=== PATIENT | male | born 1960 | race Caucasian/White ===

== ENCOUNTER 2024-05-20 11:52 | Inpatient (IN) | payer MEDICAID, OTHER ==
[~2024-05-20] VITALS: Ht 188 cm; Wt 147.1 kg
--- NOTE | 2024-05-20 12:26 | ED.PDOC ---
GI ASSESSMENT HPI Comments HPI: Poor Historian. 64 y.o male presents to the ED for a chief complaint of diffused abdominal pain associated with nausea that started today at 0300. Patient reports pain is constant and has no alleviating or precipitating factors. Patient reports last bowel movement was last night which was normal. No diarrhea, vomiting, chills, or fever reported. Vital signs: BP: 150/92 HR: 109 Temp: 97 F SPO2: 98% RA RR: 20 Patient denies any allergies Past medical history: Kidney stones and HTN Past surgical history: Lithotripsy, leg and eye Past Medcial History: Past Surgical History: REVIEW OF SYSTEMS: CONSTITUTIONAL: Denies acute: fever, diaphoresis, chills, generalized weakness. HEAD: Denies acute: headache, photophobia Eyes: Denies acute: Double vision, vision loss, eye pain, eye discharge. EARS: Denies acute: tinnitus, hearing loss, ear discharge, ear pain, THROAT: Denies acute: sore throat, swelling, difficulty swallowing , pain with swallowing, change in voice. NECK: Denies acute: neck pain, neck swelling, stiff neck. HEART: Denies acute : chest pain, palpitations, LUNGS: Denies acute: SOB, wheezing, cough, hemoptysis ABDOMEN: Denies acute: Vomiting, diarrhea, melena , hematemesis, hematochezia SKIN: Denies acute: rash, redness, lesions, itchiness. EXTREMITIES: Denies acute: calf pain, numbness, tingling, weakness, denies pain in extremity. Denies acute: Low back pain. Neuro: Denies acute: focal neurological deficit, motor or sensory focal neurological deficit, tremors, seizure like activity, confusion, dizziness, change in mental status, loss of bowel or bladder function, cauda equina like symptoms. : Denies acute: dysuria, hematuria, flank pain, increase in urinary frequency. PSYCH: Denies acute: hallucination, suicidal ideation, homicidal ideation. PHYSICAL EXAM: General: Moderate acute distress, awake and alert. Head: normocephalic, atraumatic. Neck: supple, trachea is midline, no swelling. Throat: Normal phonation. Eyes:, no erythema, no purulent discharge, no proptosis, no icterus. Heart: regular tachycardia no significant murmur appreciated. Lungs: no apparent respiratory distress, Able to speak in full sentences. No wheezing, no rhonchi, no crackles. No stridors Clear to auscultation bilaterally. Abdomen: Generalized tender to palpation, slightly distended, soft, minimal guarding, positive rebound, + bowel sounds. Obese Neuro: Awake, Alert, oriented to name, self, situation, follows commands GCS=15. Speech is normal. Skin: no petechia, no purpura, no cyanosis, non-pale, not jaundice. Lower extremities: --trace bilateral - Pitting edema no deformity, no focal swelling, no calf TTP. Makes eye contact. moves all four extremities. Face: no apparent facial droop. Ambulating in the ED independently. Time Seen by MD: 12:20 Reviewed Notes: Allergies Allergies: Coded Allergies: NO KNOWN ALLERGIES (Unverified , 05/20/24) Information Source: Patient Mode of Arrival: Ambulatory Timing: Hours Duration: Since onset Past Medical History PAST MEDICAL HISTORY: HTN, Kidney Stones Surgical History (Other): kidney stone removal leg and eye Family History Family History: Reviewed,noncontributory to illness Social History Smoker: Non-Smoker Alcohol: Occasionally Drugs: Denies Drug Use Lives In: Home Was a procedure done? Was a procedure done?: No GI differential Dx Differential Diagnosis: Esophagitis, Gastroenteritis, Electrolyte Imbalance, Viral, Other (DDX include but not limited to diverticulitis, colitis, gastroenteritis, acute abdomen, SBO, enteritis, constipation, volvulus, appendicitis, Gallbladder disease, choledocolithiasis, ascending cholangitis, pancreatitis, intraAbdominal mass/neoplasm, hepatitis, UTI, pylonephritis, kidney stone, aneurysm, dissection, Inflammatory bowel disease, gastroparesis, ischemic bowel.) X-Ray, Labs, Meds, VS Vital Signs Date Time Temp Pulse Resp B/P (MAP) Pulse Ox O2 Delivery O2 Flow Rate FiO2 05/20/24 13:40 184/110 05/20/24 12:27 97.0 109 20 150/92 (111) 98 05/20/24 12:25 111 Lab Test 05/20/24 12:57 Range/Units White Blood Count 15.0 H 4.4-10.8 10^3/uL Red Blood Count 6.03 H 4.5-5.90 10^6/uL Hemoglobin 20.1 H 13.5-17.5 g/dL Hematocrit 59.1 H 41.0-53.0 % Mean Corpuscular Volume 97.9 80.0-100.0 fL Mean Corpuscular Hemoglobin 33.4 H 28.0-32.0 pg Mean Corpuscular Hemoglobin Concent 34.1 32.0-36.0 g/dL Red Cell Distribution Width 15.9 H 11.8-14.3 % Platelet Count 177 140-450 10^3/uL Mean Platelet Volume 8.0 6.9-10.8 fL Neutrophils (%) (Auto) 37.0-80.0 % Lymphocytes (%) (Auto) 10.0-50.0 % Monocytes (%) (Auto) 0.0-12.0 % Basophils (%) (Auto) 0.0-2.0 % Neutrophils # (Auto) 1.6-8.6 10 ^3/uL Lymphocytes # (Auto) 0.4-5.4 10 ^3/uL Monocytes # (Auto) 0-1.3 10 ^3/uL Differential Total Cells Counted 100.0 100 Neutrophils % (Manual) 81 H 37.0-80.0 Band Neutrophils % (Manual) 0 Lymphocytes % (Manual) 9 L 10.0-50.0 Monocytes % (Manual) 10 0-12 Eosinophils % (Manual) 0 0-7 Basophils % (Manual) 0 0.0-2.0 Metamyelocytes % (manual) 0 Myelocytes % (Manual) 0 Promyelocytes % (Manual) 0 Blast Cells % (Manual) 0 Reactive Lymphocytes 0 Platelet Estimate Adequate Prothrombin Time Pending Prothrombin Time INR Pending Activated Partial Thromboplast Time Pending Sodium Level 138 136-145 mmol/L Potassium Level 4.5 3.5-5.1 mmol/L Chloride Level 102 98-107 mmol/L Carbon Dioxide Level 30 20-31 mmol/L Anion Gap 6 5-15 Blood Urea Nitrogen 19 9-23 mg/dL Creatinine 1.02 0.700-1.30 mg/dL Glomerular Filtration Rate Calc 82 >90 mL/min BUN/Creatinine Ratio 18.6 10.0-20.0 Serum Glucose 166 H 74-106 mg/dL Lactic Acid Level 4.4 *H 0.4-2.0 mmol/L Calcium Level 12.2 H 8.7-10.4 mg/dL Total Bilirubin 1.9 H 0.2-1.0 mg/dL Aspartate Amino Transferase (AST) 15 13-40 U/L Alanine Aminotransferase (ALT) 16 7-40 U/L Alkaline Phosphatase 88 46-116 U/L Troponin I High Sensitivity 6 </=54 ng/L Total Protein 6.7 5.7-8.2 g/dL Albumin 4.4 3.2-4.8 g/dL Lipase 22 12-53 U/L Current Medications Medications (Trade) Dose Ordered Sig/Binta Route Start Time Stop Time Status Last Admin Ondansetron HCl (Zofran) 8 mg ONCE ONCE IV 05/20/24 12:30 05/20/24 12:31 DC 05/20/24 13:38 Piperacillin Sod/ Tazobactam Sod 100 ml @ 33.333 mls/ hr ONCE ONCE IV 05/20/24 13:15 05/20/24 16:14 05/20/24 14:11 Fentanyl Citrate 100 mcg ONCE ONCE IV 05/20/24 13:15 05/20/24 13:16 DC 05/20/24 13:40 Sodium Chloride 1,000 ml @ 1,000 mls/hr Q1H ONCE IV 05/20/24 13:45 05/20/24 14:44 05/20/24 14:11 [place] [address] Ph: [phone] DIAGNOSTIC IMAGING Diagnostic Imaging Report : [id number] Signed PATIENT: PREMA CARTWRIGHT ACCT: [id number] UNIT: [id number] : 1960 LOC: ER ROOM / BED: / AGE / SEX: 64 / M ADM STATUS: REG ER SERVICE 1220 ORDERING PHYSICIAN: MANISH BARRIOS DO PROCEDURE(s): CXRP - CHEST PORTABLE REASON: abd pain ORDER NUMBER(s): [id number], ACCESSION NUMBER(s): [id number] EXAM: XY CHEST PORTABLE CLINICAL HISTORY: abd pain TECHNIQUE: Single AP view of the chest WID: COMPARISON: None FINDINGS: Lines and tubes: None Chest: The heart size and pulmonary vasculature is within normal limits. No pleural effusion, pneumothorax, or consolidation. There is free air beneath the right hemidiaphragm. The osseous structures are grossly intact. IMPRESSION: 1. Free air beneath the right hemidiaphragm. This will be further evaluated on pending CT abdomen and pelvis. 2. No acute cardiopulmonary abnormality. ATED BY: MARY GRACE CAMACHO MD DICTATED DATE/TIME: 05/20/24 1254 SIGNED BY: MARY GRACE CAMACHO MD SIGNED DATE/TIME: 05/20/24 1254 CC: [place] [address] Ph: [phone] DIAGNOSTIC IMAGING Diagnostic Imaging Report : [id number] Signed PATIENT: PREMA CARTWRIGHT ACCT: [id number] UNIT: [id number] : 1960 LOC: ER ROOM / BED: / AGE / SEX: 64 / M ADM STATUS: REG ER SERVICE 1220 ORDERING PHYSICIAN: MANISH BARRIOS DO PROCEDURE(s): ABPL - CT AB PEL WO CON-NO ORAL OR IV REASON: abd pain ORDER NUMBER(s): [id number], ACCESSION NUMBER(s): [id number] CLINICAL HISTORY: abd pain TECHNIQUE: CT of the abdomen and pelvis was performed without intravenous contrast. This exam was performed according to our departmental dose optimization program. Up-to-date CT equipment and radiation dose reduction techniques are utilized as appropriate. [Radimetrics Exposure Report] CTDI: [CTDIvol] DLP: 1473.61 WID: COMPARISON: None FINDINGS: Lower Thorax: Linear and ground-glass bibasilar opacities likely atelectasis and/or scarring. Normal-sized heart Liver and Biliary system: Mild hepatomegaly measuring 18 cm craniocaudal. Tiny hypodensity in segment 7 of the liver is suboptimally evaluated without contrast. There is cholelithiasis in the normal caliber gallbladder. No biliary ductal dilatation. Spleen: Mild splenomegaly. Adrenal Glands and Kidneys: A small right adrenal gland adenoma measures 9 mm. Normal left adrenal gland. There is no hydronephrosis or right nephrolithiasis. Tiny nonobstructing left upper pole renal calculus. There is a small hypodense lesion in the upper pole left kidney suboptimally evaluated without contrast though may reflect a cyst. Nonspecific bilateral perinephric soft tissue thickening / stranding. Pancreas and Retroperitoneum: Pancreatic atrophy. There is no retroperitoneal lymphadenopathy. Aorta and Major Vessels: Aortoiliac vessels are normal in caliber with mild calcified atherosclerotic plaque. Bowel, Mesentery and Peritoneal space: The small and large bowel loops are normal in caliber. There is mild colonic diverticulosis. Normal appendix. Mild ascites. There is free intraperitoneal air predominantly in the upper to mid abdomen. There is circumferential wall thickening of the gastric antrum and 1st portion of the duodenum. There is a defect in the mucosa in the gastric antrum best seen on series 601, image 50 and 602 image 74 with mild surrounding soft tissue stranding. There is no well-formed thick-walled fluid collection at this time to suggest abscess. Pelvis: Urinary bladder is mildly distended with mild wall thickening. There is mild prostatomegaly. Prominent [id number]-[id number]-[id number]-right pelvic lymph nodes for example along the left pelvic sidewall on series 2, image 82. Abdominal wall and Osseous Structures: Small fat Containing bilateral inguinal hernias. Small fat containing umbilical hernia. Multilevel lower thoracic and lumbar spondylosis. Tiny sclerotic foci within the proximal femurs and pelvis likely bone islands. No destructive osseous lesion. IMPRESSION: 1. Free intraperitoneal air likely secondary to a perforated peptic ulcer in the gastric antrum. 2. Mild hepatosplenomegaly. 3. Tiny nonobstructing left upper pole renal calculus. 4. Mild colonic diverticulosis. 5. Mild ascites. 6. Mild prostatomegaly and mild bladder wall thickening which may be due to chronic bladder outlet obstruction or underdistention. Correlate with urinalysis if there is clinical concern for cystitis. [Critical Findings] Critical Result: Perforated peptic ulcer with free intraperitoneal air. Findings discussed with Dr Barrios at 05/20/2024 01:03 PM, and acknowledged receipt and understanding of the findings. .. ATED BY: MARY GRACE CAMACHO MD DICTATED DATE/TIME: 05/20/241322 SIGNED BY: MARY GRACE CAMACHO MD SIGNED DATE/TIME: 05/20/241322 CC: Time of 1ST Reevaluation: 12:23 Reevaluation 1ST: Unchanged Time of 2ND Reevaluation: 13:13 (The case was discussed with the general surgeon team (HPI, physical exam, labs and diagnostic tests that were available at the time of disposition, ED course, treatment plan) on the phone. He said he will come and evaluate the patient in the ED. Dr. Balderrama) Patient Education/Counseling: Diagnosis, Treatment Family Education/Counseling: No Family Present Comments Patient presented with the above HPI.-abdominal pain-----workup was initiated. patient was found with the above mentioned diagnosis. Patient was given: Fentanyl, normal saline, Zofran, Zosyn Patient ED course and VS have been stabilized. Patient has been reassessed in the ED and remained in a stable condition. Pertinent incidental findings were discussed with the patient and/or family. Patient/family voices understanding and is agreeable with plan. Patient has been observed in the ED adequate length of time to insure improvement/stability. General surgery was consulted who came and evaluated the patient at bedside. They placed NG tube. Please see their consultation notes. patient was admitted to the medicine team for further evaluation and treatment of their presentation. All the reports of any imaging studies that were ordered by myself were reviewed by myself. Departure 1 Departure Time of Disposition: 13:04 Impression: Primary Impression: Acute abdomen Additional Impression: Perforated peptic ulcer Disposition: ADMITTED INPATIENT Admit to: Tele Condition: Guarded Discharged With: Self Critical Care Note Critical Care Time?: Yes (45 min-critical care time only) I personally scribed for MANISH BARRIOS DO ([email or web address]) on 05/20/24 at 12:26. Electronically submitted by Nereida Trimble ([facility]). I personally scribed for MANISH BARRIOS DO ([email or web address]) on 05/20/24 at 13:52. Electronically submitted by Nereida Trimble ([facility]). MANISH BARRIOS DO May 20, 2024 12:26
--- NOTE | 2024-05-20 12:35 | ECG ---
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
--- NOTE | 2024-05-20 12:57 | DVH ---
EXAM: XY CHEST PORTABLE CLINICAL HISTORY: abd pain TECHNIQUE: Single AP view of the chest WID: COMPARISON: None FINDINGS: Lines and tubes: None Chest: The heart size and pulmonary vasculature is within normal limits. No pleural effusion, pneumothorax, or consolidation. There is free air beneath the right hemidiaphrag m. The osseous structures are grossly intact. IMPRESSION: 1. Free air beneath the right hemidiaphragm. This will be further evaluated on pending CT abdomen and pelvis. 2. No acute cardiopulmonary abnormality.
[2024-05-20 13:20] VITALS: PULSE 107; RESP 12; O2SAT 91
[2024-05-20 13:24] LABS: Platelet Count (auto) 177 10^3/uL (140-450)
[2024-05-20 13:25] LABS: Hemoglobin 20.1 g/dL (13.5-17.5); Mean Corpuscular Hemoglobin 33.4 pg (28.0-32.0); Mean Corpuscular Hgb Conc. 34.1 g/dL (32.0-36.0); Mean Corpuscular Volume 97.9 fL (80.0-100.0); Red Blood Cells 6.03 10^6/uL (4.5-5.90); Red Cell Distribution Width 15.9 % (11.8-14.3)
--- NOTE | 2024-05-20 13:25 | DVH ---
CLINICAL HISTORY: abd pain TECHNIQUE: CT of the abdomen and pelvis was performed without intravenous contrast. This exam was per formed according to our departmental dose optimization program. Up-to-date CT equipment and radiation dose reduction techniques are utilized as appropriate. [Radimetrics Exposure Report] CTDI: [CTDIvol] DLP: 1473.61 WID: COMPARISON: None FINDINGS: Lower Thorax: Linear and ground-glass bibasilar opacities likely atelectasis and/or scarring. Normal- sized heart Liver and Biliary system: Mild hepatomegaly measuring 18 cm craniocaudal. Tiny hypodensity in segment 7 of the liver is suboptimally evaluated without contrast. There is cholelithiasis in the normal cuca iber gallbladder. No biliary ductal dilatation. Spleen: Mild splenomegaly. Adrenal Glands and Kidneys: A small right adrenal gland adenoma measures 9 mm. Normal left adrenal g land. There is no hydronephrosis or right nephrolithiasis. Tiny nonobstructing left upper pole renal calculus. There is a small hypodense lesion in the upper pole left kidney suboptimally evaluated wit hout contrast though may reflect a cyst. Nonspecific bilateral perinephric soft tissue thickening / stranding. Pancreas and Retroperitoneum: Pancreatic atrophy. There is no retroperitoneal lymphadenopathy. Aorta and Major Vessels: Aortoiliac vessels are normal in caliber with mild calcified atherosclerotic plaque. Bowel, Mesentery and Peritoneal space: The small and large bowel loops are normal in caliber. There i s mild colonic diverticulosis. Normal appendix. Mild ascites. There is free intraperitoneal air predo minantly in the upper to mid abdomen. There is circumferential wall thickening of the gastric antrum and 1st portion of the duodenum. There is a defect in the mucosa in the gastric antrum best seen on s eries 601, image 50 and 602 image 74 with mild surrounding soft tissue stranding. There is no well-fo rmed thick-walled fluid collection at this time to suggest abscess. Pelvis: Urinary bladder is mildly distended with mild wall thickening. There is mild prostatomegaly. Prominent joih-sjncnyx-ueaf-right pelvic lymph nodes for example along the left pelvic sidewall on se bhumi 2, image 82. Abdominal wall and Osseous Structures: Small fat Containing bilateral inguinal hernias. Small fat co ntaining umbilical hernia. Multilevel lower thoracic and lumbar spondylosis. Tiny sclerotic foci with in the proximal femurs and pelvis likely bone islands. No destructive osseous lesion. IMPRESSION: 1. Free intraperitoneal air likely secondary to a perforated peptic ulcer in the gastric antrum. 2. Mild hepatosplenomegaly. 3. Tiny nonobstructing left upper pole renal calculus. 4. Mild colonic diverticulosis. 5. Mild ascites. 6. Mild prostatomegaly and mild bladder wall thickening which may be due to chronic bladder outlet ob struction or underdistention. Correlate with urinalysis if there is clinical concern for cystitis. [Critical Findings] Critical Result: Perforated peptic ulcer with free intraperitoneal air. Findings discussed with Dr Redman at 05/20/2024 01:03 PM, and acknowledged receipt and understanding o f the findings. ..
[2024-05-20 13:33] LABS: Band Neutrophils % (manual) 0; Basophils % (manual) 0 (0.0-2.0); Blast Cells 0; Eosinophils % (manual) 0 (0-7); Hematocrit 59.1 % (41.0-53.0); Metamyelocytes % 0; Myelocytes % 0; Promyelocytes % 0; Reactive Lymphocytes 0
[2024-05-20] MEDS: ONDANSETRON HCL 4 MG/2 ML VIAL IV ONE ×2 (13:38→16:45)
[2024-05-20] MEDS: fentaNYL CITRATE 100 MCG/2 ML VL IV ONE (13:40)
[2024-05-20 13:42] LABS: Alanine Aminotransferase 16 U/L (7-40); Albumin 4.4 g/dL (3.2-4.8); Alkaline Phosphatase 88 U/L (46-116); Anion Gap 6 (5-15); Aspartate Aminotransferase 15 U/L (13-40); BUN/Creatinine Ratio 18.6 (10.0-20.0); Blood Urea Nitrogen 19 mg/dL (9-23); Calcium 12.2 mg/dL (8.7-10.4); Carbon Dioxide 30 mmol/L (20-31); Chloride 102 mmol/L (98-107); Glucose 166 mg/dL (74-106); Lipase 22 U/L (12-53); Potassium 4.5 mmol/L (3.5-5.1); Sodium 138 mmol/L (136-145)
[2024-05-20 13:43] LABS: Bilirubin, Total 1.9 mg/dL (0.2-1.0); Total Protein 6.7 g/dL (5.7-8.2)
[2024-05-20] MEDS ORDERED: NITROGLYCERIN 0.4 MG SL TAB SL PRN (13:45)
[2024-05-20] MEDS ORDERED: MORPHINE SULFATE INJ 2 MG/ml SYRG IV PRN (13:45)
[2024-05-20] MEDS ORDERED: ONDANSETRON HCL 4 MG/2 ML VIAL IV PRN ×2 (13:45→16:15)
[2024-05-20] MEDS ORDERED: PANTOPRAZOLE 40 MG/10 ML VIAL INJ IV SCH (13:45)
[2024-05-20 13:53] LABS: Lactic Acid w/Reflex 4.4 mmol/L (0.4-2.0)
--- NOTE | 2024-05-20 14:03 | DVHHP2 ---
History of Present Illness Reason for Visit: Abdominal pain History of Present Illness The patient was a 64-year-old male presenting to the emergency room with severe abdominal pain. Patient states that he was awakened approximately 3:00 a.m. with severe epigastric pain that transitioned to all four quadrants. He denies having nausea/vomiting. The patient also denies having any bowel movements since yesterday. He denies any fevers, chills, body aches. Assessment of the patient reveals severe tenderness to his generalized abdomen. CT scan reveals free air under his diaphragm, with probable perforated ulcer. Patient has already been seen by General surgery and has consented for emergent exploratory laparotomy.-significant history of the patient includes dyslipidemia and hypertension. The patient also reports drinking approximately six beers 5-6 days out of the week. Cardiovascular: HTN, hyperipidemia Past Surgical History: Other (His eye surgery. Right lower extremity ORIF) Smoke: # pack years ALCOHOL: heavy Drugs: None Lives: with Family Domestic Violence: Neg Review of Systems Constitutional: No: Fever, Chills, Sweats, Weakness, Malaise, Other Eyes: No: Pain, Vision change, Conjunctivae inflammation, Eyelid inflammation, Other, Redness ENT: No: Ear pain, Ear discharge, Nose pain, Nose discharge, Nose congestion, Mouth pain, Mouth swelling, Throat pain, Throat swelling, Other Respiratory: No: Cough, Dry, Shortness of breath, SOB with excertion, Wheezing, Hemoptysis, Pleuritic Pain, Sputum, Wheezing, Other Cardiovascular: No: Chest Pain, Palpitations, Orthopnea, Paroxysmal Noc. Dyspnea, Edema, Lt Headedness, Other Gastrointestinal: Abdominal Pain Genitourinary: No Dysuria, No Frequency, No Incontinence, No Hematuria, No Retention, No Other Skin: No: Rash, Lesions, Jaundice, Bruising, Other Neurological: No: Weakness, Numbness, Incoordination, Change in speech, Confu nasim, Seizures, Other Allergies: Coded Allergies: NO KNOWN ALLERGIES (Unverified , 05/20/24) Exam Vital Signs Vital Signs Date Time Temp Pulse Resp B/P (MAP) Pulse Ox O2 Delivery O2 Flow Rate FiO2 05/20/24 12:27 97.0 109 20 150/92 (111) 98 General Appearance: Alert, Oriented X3, Cooperative, moderate distress HEENT: Atraumatic, PERRLA Respiratory: Clear to auscultation, Normal air movement Cardiovascular: Normal S1, Normal S2, Other (Sinus tachycardia) Abdominal: Normal bowel sounds Extremities: No clubbing, No cyanosis Skin: No rashes, No breakdown Neuro: Normal gait, Normal speech Psych/Mental Status: Mental status NL, Mood NL Labs/Xrays Labs Test 05/20/24 12:57 Range/Units White Blood Count 15.0 H 4.4-10.8 10^3/uL Red Blood Count 6.03 H 4.5-5.90 10^6/uL Hemoglobin 20.1 H 13.5-17.5 g/dL Hematocrit 59.1 H 41.0-53.0 % Mean Corpuscular Volume 97.9 80.0-100.0 fL Mean Corpuscular Hemoglobin 33.4 H 28.0-32.0 pg Mean Corpuscular Hemoglobin Concent 34.1 32.0-36.0 g/dL Red Cell Distribution Width 15.9 H 11.8-14.3 % Platelet Count 177 140-450 10^3/uL Mean Platelet Volume 8.0 6.9-10.8 fL Neutrophils (%) (Auto) 37.0-80.0 % Lymphocytes (%) (Auto) 10.0-50.0 % Monocytes (%) (Auto) 0.0-12.0 % Basophils (%) (Auto) 0.0-2.0 % Neutrophils # (Auto) 1.6-8.6 10 ^3/uL Lymphocytes # (Auto) 0.4-5.4 10 ^3/uL Monocytes # (Auto) 0-1.3 10 ^3/uL Sodium Level 138 136-145 mmol/L Potassium Level 4.5 3.5-5.1 mmol/L Chloride Level 102 98-107 mmol/L Carbon Dioxide Level 30 20-31 mmol/L Anion Gap 6 5-15 Blood Urea Nitrogen 19 9-23 mg/dL Creatinine 1.02 0.700-1.30 mg/dL Glomerular Filtration Rate Calc 82 >90 mL/min BUN/Creatinine Ratio 18.6 10.0-20.0 Serum Glucose 166 H 74-106 mg/dL Lactic Acid Level 4.4 *H 0.4-2.0 mmol/L Calcium Level 12.2 H 8.7-10.4 mg/dL Total Bilirubin 1.9 H 0.2-1.0 mg/dL Aspartate Amino Transferase (AST) 15 13-40 U/L Alanine Aminotransferase (ALT) 16 7-40 U/L Alkaline Phosphatase 88 46-116 U/L Troponin I High Sensitivity 6 </=54 ng/L Total Protein 6.7 5.7-8.2 g/dL Albumin 4.4 3.2-4.8 g/dL Lipase 22 12-53 U/L Assessment/Plan Assessment/Plan Impression: -perforated ulcer -sepsis -obesity -primary hypertension -dyslipidemia Plan: -admit to telemetry unit -surgical consultation -IV antibiotic therapy: Zosyn -IV bolus with 1 L normal saline, followed by 100 mL/hour -NPO status -PPI, give Protonix 40 mg IV x1 now -pain management -repeat labs in a.m. -SCDs Total time spent with patient discussing and formulating plan of care: 35 minutes. This medical document was created using an electronic medical record system with [employer] dictation system. Although this document has been carefully reviewed, there may still be some phonetic and typographical errors. These areas are purely typographical due to imperfections of the software programs, and do not reflect any compromise in the patient's medical care. Plan discussed with: Patient, Other (RN) Date of Service: May 20, 2024 Billing Provider: HELEN GUZMAN NP Common Visit Codes: [id number] INP/OBS CARE (HIGH) HELEN GUZMAN NP May 20, 2024 14:03
[2024-05-20 14:08] LABS: Lymphocytes % (manual) 9 (10.0-50.0); Monocytes % (manual) 10 (0-12); Platelet Estimate Adequate
[2024-05-20] MEDS: PIPERACILLIN-TAZOB 3.375GM 100 ML IV ONE (14:11)
[2024-05-20] MEDS: SODIUM CHLORIDE 0.9% 1,000 ML IV ONE (14:11)
--- NOTE | 2024-05-20 14:17 | DVH ---
CHEST RADIOGRAPH Indication:NG TUBE PLACEMENT Technique: Single frontal view of the chest was obtained COMPARISON: XY CHEST PORTABLE on DOS: 05/20/24 FINDINGS: Lines and Tubes: Enteric catheter in satisfactory position. Lungs: Clear Pleura: No effusion. No pneumothorax. Cardiomediastinal contours: Unremarkable Bones: Unremarkable IMPRESSION: Enteric catheter in satisfactory position.
[2024-05-20] MEDS: SODIUM CHLORIDE 0.9% 1,000 ML IV SCH (14:19)
[2024-05-20] MEDS ORDERED: KETOROLAC TROMETH 30 MG/ML 1ML VIAL ONE (14:20)
[2024-05-20] MEDS ORDERED: DexAMETHasone SOD PHOS 10MG/1ML VIAL INJ ONE (14:20)
[2024-05-20] MEDS ORDERED: PROPOFOL 10 MG/ML 20 ML IV ONE (14:20)
[2024-05-20] MEDS ORDERED: GLYCOPYRROLATE 0.2 MG/ML 1ML VIAL ONE (14:20)
[2024-05-20] MEDS ORDERED: fentaNYL CITRATE 100 MCG/2 ML VL ONE (14:20)
[2024-05-20] MEDS ORDERED: MIDAZOLAM HCL 2MG/2ML 2ml VIAL (1mg/ml) ONE (14:20)
[2024-05-20] MEDS ORDERED: HYDROmorphone HCL 2 MG/ML VL/or syr ONE (14:20)
[2024-05-20] MEDS ORDERED: LIDOCAINE 2% (LOCAL ANESTH.) PF 5ml SDV ONE (14:20)
[2024-05-20] MEDS ORDERED: ONDANSETRON HCL 4 MG/2 ML VIAL ONE (14:20)
[2024-05-20] MEDS ORDERED: ePHEDrine SULFATE 50 MG/ML AMP ONE (14:20)
[2024-05-20] MEDS ORDERED: KETAMINE 50mg/ML 1ml syringe ONE (14:20)
[2024-05-20 15:03] LABS: INR 1.13 (0.9-1.15); Partial Thromboplastin Time 26.5 SEC (24.5-34.5); Prothrombin Time 11.9 sec (9.3-11.8)
[2024-05-20] MEDS: BUPIVACAINE W/ EPINEPH 0.5% MPF 30ML VIAL IJ ONE (16:05)
[2024-05-20] MEDS: BUPIVACAINE W/ EPINEPH 0.5% INJ 50ML MDV IJ ONE (16:06)
[2024-05-20] MEDS ORDERED: SUGAMMADEX 200mg/2ml Vial (100MG/ML) IV ONE ×2 (16:14→16:15)
[2024-05-20] MEDS: HYDROMORPHONE HCL 1 MG/ML INJ IV ONE (16:15)
[2024-05-20 16:31] VITALS: PULSE 125; RESP 12; O2SAT 92
[2024-05-20] MEDS ORDERED: ePHEDrine SULFATE 50 MG/ML AMP IV PRN (16:45)
[2024-05-20] MEDS ORDERED: MORPHINE SULFATE 4 MG/ML SYR/VIAL IV PRN (16:45)
[2024-05-20] MEDS ORDERED: HYDROmorphone HCL 2 MG/ML VL/or syr IV PRN (16:45)
[2024-05-20] MEDS ORDERED: NALOXONE HCL 0.4 MG/ML VIAL IV PRN (16:45)
[2024-05-20] MEDS: hydrALAZINE HCL 20 MG/ML VL IV PRN (17:36)
--- NOTE | 2024-05-20 17:53 | DVHOP ---
DATE OF SURGERY: 05/20/2024 PREOPERATIVE DIAGNOSIS: Perforated peptic ulcer. POSTOPERATIVE DIAGNOSIS: Peritonitis secondary to perforated pyloric ulcer. SURGEON: Edison Moore MD ELECTRIC REFRIGERATOR PREPARER: Gumaro Seymour. ANESTHESIA: General endotracheal. ANESTHESIOLOGIST: Dr. Christensen. PROCEDURES: Exploratory laparotomy, abdominal lavage. Repair of a perforated peptic ulceration. DESCRIPTION OF PROCEDURE: Under adequate anesthesia with the patient's skin prepped and draped, a midline incision was made and much peritoneal fluid murky in appearance was evacuated and samples sent for cultures and sensitivities. The abdomen was then profusely irrigated with 5 liters of antibiotic containing warm solution, which was aspirated. The ulceration was found to be just proximal to the pylorus and a Pradip closure utilizing Monocryl sutures and the patient's omental fat was accomplished. The ulcer was closed. The abdomen was again irrigated and a 10 mm Maikel-Cavazos drain was placed to the vicinity, but not abutting against the repair and exteriorized through separate incision. The drain was secured with a 2-0 nylon suture. Following assurance of complete hemostasis, and accurate needle and sponge count reported by the nurses x2, the abdomen was closed using #1 double stranded PDS suture. The skin was closed with metallic skin jeannine. The patient remained stable throughout the procedure, left the operating room following an accurate needle and sponge count. No family members were present in the waiting room. Edison Moore MD PF TID: [id number] RECEIPT: [id number]
[2024-05-20 18:36] VITALS: BP 146/90; PULSE 113; RESP 18; TEMP 98.6; O2SAT 90
[2024-05-20 20:00] VITALS: PULSE 100; PULSE 121
[2024-05-20] MEDS ORDERED: PIPERACILLIN-TAZOB 3.375GM 100 ML IV SCH (20:00)
[2024-05-20] MEDS: PANTOPRAZOLE 40mg/50ML NS AE 50 ML IV SCH (20:41)
[2024-05-20 21:00] VITALS: BP 160/92; PULSE 105; RESP 20; TEMP 98.6; O2SAT 90
[2024-05-20] MEDS: cefTRIAXone 2GM/50ML D5W 50 ML IV ONE (21:23)
[2024-05-20] MEDS: FOLIC ACID 1 MG, MULTIPLE VITAMIN 10 ML, MAGNESIUM SULF SDV 50% 8 MEQ, THIAMINE INJ 100... INJ SCH (22:15)
[2024-05-21] VITALS (7 sets, daily range): BP systolic 153–170; BP diastolic 82–96; PULSE 84–97; RESP 16–22; TEMP 97.7–98.3; O2SAT 91–95
[2024-05-21] MEDS ORDERED: cloNIDine HCL 0.1 MG TAB PO PRN (00:45)
[2024-05-21] MEDS: D5W/SOD CHL 0.45%/KCL 20MEQ 1,000 ML IV SCH (01:45)
[2024-05-21] MEDS: hydrALAZINE HCL 20 MG/ML VL IV ONE (06:01)
[2024-05-21 06:37] LABS: Eosinophils # (auto) 0 10 ^3/uL (0-0.8); Monocytes # (auto) 0.8 10 ^3/uL (0-1.3); Monocytes % (auto) 4.5 % (0.0-12.0)
[2024-05-21 06:39] LABS: Alanine Aminotransferase 21 U/L (7-40); Albumin 3.5 g/dL (3.2-4.8); Alkaline Phosphatase 58 U/L (46-116); Anion Gap 2 (5-15); Aspartate Aminotransferase 17 U/L (13-40); BUN/Creatinine Ratio 21.1 (10.0-20.0); Bilirubin, Total 0.8 mg/dL (0.2-1.0); Blood Urea Nitrogen 19 mg/dL (9-23); Calcium 10.1 mg/dL (8.7-10.4); Carbon Dioxide 32 mmol/L (20-31); Chloride 102 mmol/L (98-107); Glucose 143 mg/dL (74-106); Sodium 136 mmol/L (136-145); Total Protein 5.9 g/dL (5.7-8.2)
[2024-05-21 06:43] LABS: Basophils # (auto) 0 10 ^3/uL (0-0.2); Basophils % (auto) 0.2 % (0.0-2.0); Hematocrit 53.3 % (41.0-53.0); Hemoglobin 17.9 g/dL (13.5-17.5); Lymphocytes # (auto) 0.8 10 ^3/uL (0.4-5.4); Lymphocytes % (auto) 4.5 % (10.0-50.0); Mean Corpuscular Hemoglobin 33.5 pg (28.0-32.0); Mean Corpuscular Hgb Conc. 33.7 g/dL (32.0-36.0); Mean Corpuscular Volume 99.5 fL (80.0-100.0); Neutrophils # (auto) 15.4 10 ^3/uL (1.6-8.6); Neutrophils % (auto) 90.8 % (37.0-80.0); Nucleated Red Blood Cells % 0.4 %; Platelet Count (auto) 156 10^3/uL (140-450); Red Blood Cells 5.36 10^6/uL (4.5-5.90); Red Cell Distribution Width 16.2 % (11.8-14.3); White Blood Cell 16.9 10^3/uL (4.4-10.8)
[2024-05-21] MEDS: LACTATED RINGER'S 2,000 ML IV ONE (09:15)
--- NOTE | 2024-05-21 10:08 | DVHPN2 ---
Progress Note Date Seen: May 21, 2024 Medical Necessity Reason Pt with a Central, PICC or Fol: No Objective vital signs Vital Sign Date Time Temp Pulse Resp B/P (MAP) Pulse Ox O2 Delivery O2 Flow Rate FiO2 05/21/24 06:01 164/92 05/21/24 05:00 98.3 95 21 92 98.3 05/20/24 20:00 Room Air* 0 21 Total Intake and Output 05/20/24 05/20/24 05/21/24 15:00 23:00 07:00 Intake Total 2500 ml 0 ml Output Total 175 ml 350 ml Balance 2325 ml -350 ml medications Current Medications Medications Dose Ordered Sig/Binta Route Start Time Stop Time Status Last Admin Dose Admin Nitroglycerin 0.4 mg Q5MINP PRN SL 05/20/24 13:45 Morphine Sulfate 2 mg Q30M PRN IV 05/20/24 13:45 Potassium Chloride/Dextrose/ Sod Cl 1,000 ml @ 120 mls/hr Q8H20M IV 05/20/24 16:15 05/21/24 01:45 120 MLS/HR Folic Acid 1 mg/ Multivitamins 10 ml/Magnesium Sulfate 8 meq/ Thiamine HCl 100 mg/Dextrose 1,013.2 ml @ 125.001 mls/hr DAILY@1800 INJ 05/20/24 18:00 05/20/24 22:15 125.001 MLS/HR Pantoprazole Sodium 50 ml @ 10 mls/hr Q5H IV 05/20/24 16:15 05/21/24 06:50 10 MLS/HR Ceftriaxone Sodium 50 ml @ 100 mls/hr DAILY@09 IV 05/21/24 09:00 Ondansetron HCl 4 mg Q4HPRN PRN IV 05/20/24 16:15 Clonidine HCl 0.1 mg Q4HP PRN PO 05/21/24 00:45 laboratory and microbiology Laboratory Tests 05/21/24 05:48 Test 05/21/24 05:48 Range/Units Serum Glucose 143 H 74-106 mg/dL Problem List/Assessment/Plan Problem List/Assessment/Plan 05/21/24 hemodynamically stable,abdomen appropriately tender, drainage sero sanguineous, operative findings explained to patient, he will need a gastrografin UGI prior to removing his NG tube.(explained to nurse) Plan discussed with: Patient, Other FISCHL,PETER MD May 21, 2024 10:07
[2024-05-21] MEDS: cefTRIAXone 1GM/50ML D5W 50 ML IV SCH (11:01)
--- NOTE | 2024-05-21 12:33 | DVHPN2 ---
Subjective Patient states that his abdominal pain has improved. Denies having any bowel movements/flatus. Reviewed: Care Plan, H&P, Labs, Medications, Previous Orders Changes from previous H/P or p: No Changes General: Per HPI Eyes: No Pain, No Vision change, No Conjunctivae inflammation, No Eyelid inflammation, No Other, No Redness ENT: No Ear pain, No Ear discharge, No Nose pain, No Nose discharge, No Nose congestion, No Mouth pain, No Mouth swelling, No Throat pain, No Throat swelling, No Other Cardiovascular: No Chest Pain, No Palpitations, No Orthopnea, No Paroxysmal Noc. Dyspnea, No Edema, No Lt Headedness, No Other Respiratory: No Cough, No Dry, No Shortness of breath, No SOB with excertion, No Wheezing, No Hemoptysis, No Pleuritic Pain, No Sputum, No Other Gastrointestinal: Abdominal Pain Genitourinary: No Dysuria, No Frequency, No Incontinence, No Hematuria, No Retention, No Other Skin: No Rash, No Lesions, No Jaundice, No Bruising, No Other Objective Vitals Vital Signs Date Time Temp Pulse Resp B/P (MAP) Pulse Ox O2 Delivery O2 Flow Rate FiO2 05/21/24 09:00 98.1 94 17 155/82 (106) 93 98.1 05/20/24 20:00 Room Air* 0 21 Intake/Output Intake and Output 05/21/24 07:00 Intake Total 2500 ml Output Total 525 ml Balance 1975 ml Intake Oral 0 ml IV Total 2500 ml Output Urine Total 425 ml Drainage Total 100 ml General Appearance: Alert, Oriented X3, Cooperative, mild distress HEENT: Atraumatic, PERRLA Lungs: Clear to auscultation, Normal air movement Cardiovascular: Normal S1, Normal S2 Abdomen: Other (Hypoactive bowel sounds. Abdominal dressing dry and intact.) Genitourinary: No Apparent Abnormalities (Shi catheter) Musculoskeletal: Normal sensory function, Normal motor function Extremities: No clubbing, No cyanosis Neuro: Normal gait, Normal speech Psych/Mental Status: Mental status NL, Mood NL Medications Current Medications Medications Dose Ordered Sig/Binta Route Start Time Stop Time Status Last Admin Dose Admin Nitroglycerin 0.4 mg Q5MINP PRN SL 05/20/24 13:45 Morphine Sulfate 2 mg Q30M PRN IV 05/20/24 13:45 Folic Acid 1 mg/ Multivitamins 10 ml/Magnesium Sulfate 8 meq/ Thiamine HCl 100 mg/Dextrose 1,013.2 ml @ 125.001 mls/hr DAILY@1800 INJ 05/20/24 18:00 05/20/24 22:15 125.001 MLS/HR Pantoprazole Sodium 50 ml @ 10 mls/hr Q5H IV 05/20/24 16:15 05/21/24 06:50 10 MLS/HR Ceftriaxone Sodium 50 ml @ 100 mls/hr DAILY@09 IV 05/21/24 09:00 05/21/24 11:01 100 MLS/HR Ondansetron HCl 4 mg Q4HPRN PRN IV 05/20/24 16:15 Dextrose/Sodium Chloride 1,000 ml @ 100 mls/hr Q10H IV 05/21/24 11:15 Morphine Sulfate 2 mg Q4HPRN PRN IV 05/21/24 12:30 UNV Labetalol HCl 10 mg Q2HPRN PRN IV 05/21/24 12:30 UNV Laboratory Results Laboratory Tests 05/21/24 05:48 Chemistry Test 05/20/24 12:57 05/21/24 05:48 Albumin 4.4 g/dL (3.2-4.8) 3.5 g/dL (3.2-4.8) Calcium Level 12.2 mg/dL (8.7-10.4) H 10.1 mg/dL (8.7-10.4) Total Protein 6.7 g/dL (5.7-8.2) 5.9 g/dL (5.7-8.2) Coagulation Test 05/20/24 12:57 Prothrombin Time 11.9 sec (9.3-11.8) H Prothrombin Time INR 1.13 (0.9-1.15) Activated Partial Thromboplast Time 26.5 SEC (24.5-34.5) Lipid panel Test 05/20/24 12:57 Lipase 22 U/L (12-53) LFT Test 05/20/24 12:57 05/21/24 05:48 Alanine Aminotransferase (ALT) 16 U/L (7-40) 21 U/L (7-40) Alkaline Phosphatase 88 U/L (46-116) 58 U/L (46-116) Aspartate Amino Transferase (AST) 15 U/L (13-40) 17 U/L (13-40) Total Bilirubin 1.9 mg/dL (0.2-1.0) H 0.8 mg/dL (0.2-1.0) Microbiology Microbiology Date/Time Source Procedure Growth Status 05/20/24 15:41 Peritoneal Fluid Gram Stain Pending Resulted 05/20/24 15:41 Peritoneal Fluid Anaerobic Culture - Preliminary Resulted Labs and/or images reviewed: Labs reviewed by me, Image(s) reviewed by me Assessment/Plan Assessment/Plan Impression: -perforated ulcer -sepsis -obesity -primary hypertension -dyslipidemia Plan: -events: Patient with exploratory lap, repair of perforated gastric ulcer, postop day one. -surgical consultation : Recommendations reviewed. -IV antibiotic therapy: Zosyn -change IV fluids to D5 half NS at 100 mL/hr. Alternate with banana bag daily. -NPO status -continue Protonix drip -out of bed as tolerated. Incentive spirometer q.1 hour while awake -pain management -repeat labs in a.m. -SCDs -transferred to Medical/Surgical unit Total time spent with patient discussing and formulating plan of care: 35 minutes. This medical document was created using an electronic medical record system with [employer] dictation system. Although this document has been carefully reviewed, there may still be some phonetic and typographical errors. These areas are purely typographical due to imperfections of the software programs, and do not reflect any compromise in the patient's medical care. Plan discussed with: Patient ( ), Other (RN) My Orders Orders - HELEN GUZMAN FRAME BUILDER Procedure Category Date Status Time Sequential [facility] 05/20/24 In Process Compression Device 13:45 Admit ADMIT 05/20/24 Transmitted 13:45 Nitroglycerin PHA 05/20/24 In Process Sublingual (Ntrostat 13:45 Morphine Sulfate PHA 05/20/24 In Process Injection 13:45 Stat Ekg For Chest [facility] 05/20/24 In Process Pain 13:45 Notify Md Of Changes [facility] 05/20/24 In Process From Base 13:45 Processing Analyst For [facility] 05/20/24 In Process 24 Hours 13:45 Emergency Dysrhythmia [facility] 05/20/24 In Process Protocol 13:45 Rhythm Strips Once [facility] 05/20/24 In Process Every Shift 13:45 Oxygen By Nasal RT 05/20/24 Transmitted Cannula 13:45 D5w/Sod Chl 0.45% PHA 05/21/24 In Process (D5w 1/2ns) 11:15 Comprehensive LAB 05/22/24 Verified Metabolic Panel 04:00 Complete Blood Count LAB 05/22/24 Verified 04:00 Morphine Sulfate PHA 05/21/24 Logged Injection 12:30 Labetalol Hcl PHA 05/21/24 Logged (Labetalol Hcl) 12:30 Incentive Spirometry ORDERS 05/21/24 Transmitted Q 1hr 12:20 Transfer Orders XFER 05/21/24 Transmitted 12:20 Date of Service: May 21, 2024 Billing Provider: HELEN GUZMAN NP Common Visit Codes: [id number] INP/OBS CARE(HIGH) HELEN GUZMAN NP May 21, 2024 12:33
[2024-05-21] MEDS: D5W/SOD CHL 0.45% 1,000 ML IV SCH (13:52)
[2024-05-21] MEDS: MORPHINE SULFATE INJ 2 MG/ml SYRG IV PRN (14:07)
[2024-05-21] MEDS ORDERED: FOLIC ACID 1 MG, MULTIPLE VITAMIN 10 ML, MAGNESIUM SULF SDV 50% 8 MEQ, THIAMINE INJ 100... INJ SCH (18:00)
[2024-05-21] MEDS: LABETALOL HCL 20 MG/4 ML VL IV PRN (18:20)
[2024-05-22 01:00] VITALS: BP 159/99; PULSE 84; RESP 20; TEMP 98.2; O2SAT 91
[2024-05-22 05:00] VITALS: BP 164/88; PULSE 99; RESP 21; TEMP 98.7; O2SAT 90
[2024-05-22] MEDS ORDERED: LISI20TA56 PO (05:27)
[2024-05-22] MEDS ORDERED: HYDR25TA5 PO (05:27)
[2024-05-22 06:19] LABS: Basophils # (auto) 0 10 ^3/uL (0-0.2); Basophils % (auto) 0.1 % (0.0-2.0); Eosinophils # (auto) 0 10 ^3/uL (0-0.8); Eosinophils % (auto) 0.2 % (0.0-7.0); Hematocrit 50.7 % (41.0-53.0); Hemoglobin 16.8 g/dL (13.5-17.5); Lymphocytes # (auto) 1.1 10 ^3/uL (0.4-5.4); Lymphocytes % (auto) 7.4 % (10.0-50.0); Mean Corpuscular Hemoglobin 33.2 pg (28.0-32.0); Mean Corpuscular Hgb Conc. 33.1 g/dL (32.0-36.0); Mean Corpuscular Volume 100.1 fL (80.0-100.0); Monocytes # (auto) 0.8 10 ^3/uL (0-1.3); Monocytes % (auto) 5.2 % (0.0-12.0); Neutrophils # (auto) 13.4 10 ^3/uL (1.6-8.6); Neutrophils % (auto) 87.1 % (37.0-80.0); Nucleated Red Blood Cells % 0.1 %; Platelet Count (auto) 164 10^3/uL (140-450); Red Blood Cells 5.07 10^6/uL (4.5-5.90); Red Cell Distribution Width 16.7 % (11.8-14.3); White Blood Cell 15.4 10^3/uL (4.4-10.8)
[2024-05-22 06:33] LABS: Alanine Aminotransferase 13 U/L (7-40); Alkaline Phosphatase 69 U/L (46-116); Anion Gap 4 (5-15); Aspartate Aminotransferase 10 U/L (13-40); BUN/Creatinine Ratio 18.8 (10.0-20.0); Blood Urea Nitrogen 16 mg/dL (9-23); Calcium 9.9 mg/dL (8.7-10.4); Carbon Dioxide 31 mmol/L (20-31); Chloride 99 mmol/L (98-107); Glucose 120 mg/dL (74-106); Potassium 4.3 mmol/L (3.5-5.1); Sodium 134 mmol/L (136-145)
[2024-05-22 06:34] LABS: Albumin 3.7 g/dL (3.2-4.8); Bilirubin, Total 0.8 mg/dL (0.2-1.0)
[2024-05-22 09:00] VITALS: BP 154/82; PULSE 88; RESP 17; TEMP 98.2; O2SAT 92
--- NOTE | 2024-05-22 11:38 | DVHPN2 ---
Progress Note Date Seen: May 22, 2024 Medical Necessity Reason Pt with a Central, PICC or Fol: No Subjective Patient reports: No new complaints, Feels better Review of Systems: HEENT:Normal, CVS:Normal, RESPIRATORY:Normal, GI:Normal, :Normal, MSK:Normal, NEURO:Normal Objective vital signs Vital Sign Date Time Temp Pulse Resp B/P (MAP) Pulse Ox O2 Delivery O2 Flow Rate FiO2 05/22/24 09:00 98.2 88 17 154/82 (106) 92 98.2 05/22/24 08:25 Room Air* 0 N/A Nasal Cannula* Total Intake and Output 05/21/24 05/21/24 05/22/24 15:00 23:00 07:00 Intake Total 0 ml 0 ml Output Total 1150 ml 600 ml Balance -1150 ml -600 ml medications Current Medications Medications Dose Ordered Sig/Binta Route Start Time Stop Time Status Last Admin Dose Admin Nitroglycerin 0.4 mg Q5MINP PRN SL 05/20/24 13:45 Morphine Sulfate 2 mg Q30M PRN IV 05/20/24 13:45 Folic Acid 1 mg/ Multivitamins 10 ml/Magnesium Sulfate 8 meq/ Thiamine HCl 100 mg/Dextrose 1,013.2 ml @ 125.001 mls/hr DAILY@1800 INJ 05/20/24 18:00 05/21/24 18:15 125.001 MLS/HR Pantoprazole Sodium 50 ml @ 10 mls/hr Q5H IV 05/20/24 16:15 05/22/24 10:27 10 MLS/HR Ceftriaxone Sodium 50 ml @ 100 mls/hr DAILY@09 IV 05/21/24 09:00 05/22/24 10:27 100 MLS/HR Ondansetron HCl 4 mg Q4HPRN PRN IV 05/20/24 16:15 Dextrose/Sodium Chloride 1,000 ml @ 100 mls/hr Q10H IV 05/21/24 11:15 05/21/24 13:52 100 MLS/HR Morphine Sulfate 2 mg Q4HPRN PRN IV 05/21/24 12:30 05/22/24 04:09 2 MG Labetalol HCl 10 mg Q2HPRN PRN IV 05/21/24 12:30 05/22/24 06:46 10 MG Examination: GENERAL:Normal, HEENT:Normal, NECK:Normal, LUNGS:Normal, CVS:Normal, ABDOMEN:Normal, SKIN:Normal laboratory and microbiology Laboratory Tests 05/22/24 05:11 Test 05/22/24 05:11 Range/Units Serum Glucose 120 H 74-106 mg/dL Problem List/Assessment/Plan Problem List/Assessment/Plan 05/22/24 no new complaints, abdomen soft, non distended, appropriately tender, NGT to LCS , patient to ambulate every 4 hours , NPO Plan discussed with: Patient, Other (Dr. Moore ) MIKO TAYLOR PUNCHBOARD FILLING MACHINE OPERATOR May 22, 2024 11:38
[2024-05-22 13:00] VITALS: BP 163/99; PULSE 79; RESP 16; TEMP 98.3; O2SAT 95
[2024-05-22 17:00] VITALS: BP 166/87; PULSE 82; RESP 17; TEMP 98.3; O2SAT 93
--- NOTE | 2024-05-22 17:38 | DVHPN2 ---
Subjective in bed resting NGT in place less pain Reviewed: Care Plan, H&P, Labs, Medications, Previous Orders Changes from previous H/P or p: No Changes General: Per HPI Eyes: No Pain, No Vision change, No Conjunctivae inflammation, No Eyelid inflammation, No Other, No Redness ENT: No Ear pain, No Ear discharge, No Nose pain, No Nose discharge, No Nose congestion, No Mouth pain, No Mouth swelling, No Throat pain, No Throat swelling, No Other Cardiovascular: No Chest Pain, No Palpitations, No Orthopnea, No Paroxysmal Noc. Dyspnea, No Edema, No Lt Headedness, No Other Respiratory: No Cough, No Dry, No Shortness of breath, No SOB with excertion, No Wheezing, No Hemoptysis, No Pleuritic Pain, No Sputum, No Other Gastrointestinal: Abdominal Pain Genitourinary: No Dysuria, No Frequency, No Incontinence, No Hematuria, No Retention, No Other Skin: No Rash, No Lesions, No Jaundice, No Bruising, No Other Objective Vitals Vital Signs Date Time Temp Pulse Resp B/P (MAP) Pulse Ox O2 Delivery O2 Flow Rate FiO2 05/22/24 17:00 98.3 82 17 166/87 (113) 93 98.3 05/22/24 08:25 Room Air* 0 N/A Nasal Cannula* Intake/Output Intake and Output 05/22/24 05:00 Intake Total 0 ml Output Total 1750 ml Balance -1750 ml Intake Oral 0 ml Output Urine Total 1750 ml General Appearance: Alert, Oriented X3, Cooperative, mild distress HEENT: Atraumatic, PERRLA Lungs: Clear to auscultation, Normal air movement Cardiovascular: Normal S1, Normal S2 Abdomen: Other (Hypoactive bowel sounds. Abdominal dressing dry and intact.) Genitourinary: No Apparent Abnormalities (Shi catheter) Musculoskeletal: Normal sensory function, Normal motor function Extremities: No clubbing, No cyanosis Neuro: Normal gait, Normal speech Psych/Mental Status: Mental status NL, Mood NL Medications Current Medications Medications Dose Ordered Sig/Binta Route Start Time Stop Time Status Last Admin Dose Admin Nitroglycerin 0.4 mg Q5MINP PRN SL 05/20/24 13:45 Morphine Sulfate 2 mg Q30M PRN IV 05/20/24 13:45 Folic Acid 1 mg/ Multivitamins 10 ml/Magnesium Sulfate 8 meq/ Thiamine HCl 100 mg/Dextrose 1,013.2 ml @ 125.001 mls/hr DAILY@1800 INJ 05/20/24 18:00 05/21/24 18:15 125.001 MLS/HR Pantoprazole Sodium 50 ml @ 10 mls/hr Q5H IV 05/20/24 16:15 05/22/24 16:14 10 MLS/HR Ceftriaxone Sodium 50 ml @ 100 mls/hr DAILY@09 IV 05/21/24 09:00 05/22/24 10:27 100 MLS/HR Ondansetron HCl 4 mg Q4HPRN PRN IV 05/20/24 16:15 Dextrose/Sodium Chloride 1,000 ml @ 100 mls/hr Q10H IV 05/21/24 11:15 05/21/24 13:52 100 MLS/HR Morphine Sulfate 2 mg Q4HPRN PRN IV 05/21/24 12:30 05/22/24 13:39 2 MG Labetalol HCl 10 mg Q2HPRN PRN IV 05/21/24 12:30 05/22/24 13:21 10 MG Laboratory Results Laboratory Tests 05/22/24 05:11 Chemistry Test 05/22/24 05:11 Albumin 3.7 g/dL (3.2-4.8) Calcium Level 9.9 mg/dL (8.7-10.4) Total Protein 6.0 g/dL (5.7-8.2) LFT Test 05/22/24 05:11 Alanine Aminotransferase (ALT) 13 U/L (7-40) Alkaline Phosphatase 69 U/L (46-116) Aspartate Amino Transferase (AST) 10 U/L (13-40) L Total Bilirubin 0.8 mg/dL (0.2-1.0) Microbiology Microbiology Date/Time Source Procedure Growth Status 05/20/24 15:41 Peritoneal Fluid Gram Stain - Final Resulted 05/20/24 15:41 Peritoneal Fluid Anaerobic Culture - Preliminary Resulted Assessment/Plan Assessment/Plan -perforated ulcer -sepsis -obesity -primary hypertension -dyslipidemia Plan: -events: Patient with exploratory lap, repair of perforated gastric ulcer, postop day 2 -surgical consultation : Recommendations reviewed. -IV antibiotic therapy: Zosyn -change IV fluids to D5 half NS at 100 mL/hr. Alternate with banana bag daily. -NPO status -continue Protonix ip -out of bed as tolerated. Incentive spirometer q.1 hour while awake -pain management -repeat labs in a.m. -SCDs -transferred to Medical/Surgical unit Total time spent with patient discussing and formulating plan of care: 35 minutes. Plan discussed with: Patient Date of Service: May 22, 2024 Billing Provider: TATUM WEBSTER MD Common Visit Codes: [id number] INP/OBS CARE(HIGH) TATUM WEBSTER MD May 22, 2024 17:38
[2024-05-22 21:00] VITALS: BP_SYST 154; BP_SYST 97; BP_DIAS 61; BP_DIAS 86; PULSE 96; RESP 20; TEMP 98; O2SAT 90
[2024-05-23] VITALS (7 sets, daily range): BP systolic 147–171; BP diastolic 86–100; PULSE 82–97; RESP 16–20; TEMP 98–99.4; O2SAT 90–100
--- NOTE | 2024-05-23 10:25 | DVHPN2 ---
Subjective in bed resting NGT in place less pain Reviewed: Care Plan, H&P, Labs, Medications, Previous Orders Changes from previous H/P or p: No Changes General: Per HPI Eyes: No Pain, No Vision change, No Conjunctivae inflammation, No Eyelid inflammation, No Other, No Redness ENT: No Ear pain, No Ear discharge, No Nose pain, No Nose discharge, No Nose congestion, No Mouth pain, No Mouth swelling, No Throat pain, No Throat swelling, No Other Cardiovascular: No Chest Pain, No Palpitations, No Orthopnea, No Paroxysmal Noc. Dyspnea, No Edema, No Lt Headedness, No Other Respiratory: No Cough, No Dry, No Shortness of breath, No SOB with excertion, No Wheezing, No Hemoptysis, No Pleuritic Pain, No Sputum, No Other Gastrointestinal: Abdominal Pain Genitourinary: No Dysuria, No Frequency, No Incontinence, No Hematuria, No Retention, No Other Skin: No Rash, No Lesions, No Jaundice, No Bruising, No Other Objective Vitals Vital Signs Date Time Temp Pulse Resp B/P (MAP) Pulse Ox O2 Delivery O2 Flow Rate FiO2 05/23/24 09:00 98.2 82 19 169/100 (123) 100 98.2 05/23/24 08:00 Room Air* 0 N/A Nasal Cannula* Intake/Output Intake and Output 05/23/24 07:00 Intake Total 1220 ml Output Total 2125 ml Balance -905 ml Intake Oral 0 ml IV Total 1220 ml Output Urine Total 1925 ml Gastric Drainage Total 200 ml General Appearance: Alert, Oriented X3, Cooperative, mild distress HEENT: Atraumatic, PERRLA Lungs: Clear to auscultation, Normal air movement Cardiovascular: Normal S1, Normal S2 Abdomen: Other (Hypoactive bowel sounds. Abdominal dressing dry and intact.) Genitourinary: No Apparent Abnormalities (Shi catheter) Musculoskeletal: Normal sensory function, Normal motor function Extremities: No clubbing, No cyanosis Neuro: Normal gait, Normal speech Psych/Mental Status: Mental status NL, Mood NL Medications Current Medications Medications Dose Ordered Sig/Binta Route Start Time Stop Time Status Last Admin Dose Admin Nitroglycerin 0.4 mg Q5MINP PRN SL 05/20/24 13:45 Morphine Sulfate 2 mg Q30M PRN IV 05/20/24 13:45 Folic Acid 1 mg/ Multivitamins 10 ml/Magnesium Sulfate 8 meq/ Thiamine HCl 100 mg/Dextrose 1,013.2 ml @ 125.001 mls/hr DAILY@1800 INJ 05/20/24 18:00 05/22/24 18:00 125.001 MLS/HR Pantoprazole Sodium 50 ml @ 10 mls/hr Q5H IV 05/20/24 16:15 05/23/24 04:31 10 MLS/HR Ceftriaxone Sodium 50 ml @ 100 mls/hr DAILY@09 IV 05/21/24 09:00 05/22/24 10:27 100 MLS/HR Ondansetron HCl 4 mg Q4HPRN PRN IV 05/20/24 16:15 Dextrose/Sodium Chloride 1,000 ml @ 100 mls/hr Q10H IV 05/21/24 11:15 05/23/24 04:15 100 MLS/HR Morphine Sulfate 2 mg Q4HPRN PRN IV 05/21/24 12:30 05/23/24 04:44 2 MG Labetalol HCl 10 mg Q2HPRN PRN IV 05/21/24 12:30 05/22/24 13:21 10 MG Laboratory Results Laboratory Tests 05/22/24 05:11 Microbiology Microbiology Date/Time Source Procedure Growth Status 05/20/24 15:41 Peritoneal Fluid Gram Stain - Final Resulted 05/20/24 15:41 Peritoneal Fluid Anaerobic Culture - Preliminary Resulted Assessment/Plan Assessment/Plan -perforated ulcer -sepsis -obesity -primary hypertension -dyslipidemia Plan: -events: Patient with exploratory lap, repair of perforated gastric ulcer, postop day 3 -surgical consultation : Recommendations reviewed. -IV antibiotic therapy: Zosyn -change IV fluids to D5 half NS at 100 mL/hr. Alternate with banana bag daily. -NPO status -continue Protonix drip -out of bed as tolerated. Incentive spirometer q.1 hour while awake -pain management -repeat labs in a.m. -SCDs -transferred to Medical/Surgical unit Total time spent with patient discussing and formulating plan of care: 35 minutes. Plan discussed with: Patient Date of Service: May 23, 2024 Billing Provider: TATUM WEBSTER MD Common Visit Codes: [id number] INP/OBS CARE(HIGH) TATUM WEBSTER MD May 23, 2024 10:25
--- NOTE | 2024-05-23 14:27 | DVHPN2 ---
Progress Note Date Seen: May 23, 2024 Medical Necessity Reason Pt with a Central, PICC or Fol: No Objective vital signs Vital Sign Date Time Temp Pulse Resp B/P (MAP) Pulse Ox O2 Delivery O2 Flow Rate FiO2 05/23/24 13:00 98.9 85 19 171/99 (123) 95 98.9 05/23/24 08:00 Room Air* 0 N/A Nasal Cannula* Total Intake and Output 05/22/24 05/22/24 05/23/24 15:00 23:00 07:00 Intake Total 0 ml 170 ml 1050 ml Output Total 1425 ml 700 ml Balance 0 ml -1255 ml 350 ml medications Current Medications Medications Dose Ordered Sig/Binta Route Start Time Stop Time Status Last Admin Dose Admin Nitroglycerin 0.4 mg Q5MINP PRN SL 05/20/24 13:45 Morphine Sulfate 2 mg Q30M PRN IV 05/20/24 13:45 Folic Acid 1 mg/ Multivitamins 10 ml/Magnesium Sulfate 8 meq/ Thiamine HCl 100 mg/Dextrose 1,013.2 ml @ 125.001 mls/hr DAILY@1800 INJ 05/20/24 18:00 05/22/24 18:00 125.001 MLS/HR Pantoprazole Sodium 50 ml @ 10 mls/hr Q5H IV 05/20/24 16:15 05/23/24 10:14 10 MLS/HR Ceftriaxone Sodium 50 ml @ 100 mls/hr DAILY@09 IV 05/21/24 09:00 05/23/24 10:15 100 MLS/HR Ondansetron HCl 4 mg Q4HPRN PRN IV 05/20/24 16:15 Dextrose/Sodium Chloride 1,000 ml @ 100 mls/hr Q10H IV 05/21/24 11:15 05/23/24 04:15 100 MLS/HR Morphine Sulfate 2 mg Q4HPRN PRN IV 05/21/24 12:30 05/23/24 10:17 2 MG Labetalol HCl 10 mg Q2HPRN PRN IV 05/21/24 12:30 05/22/24 13:21 10 MG laboratory and microbiology Laboratory Tests 05/22/24 05:11 Test 05/22/24 05:11 Range/Units Serum Glucose 120 H 74-106 mg/dL Problem List/Assessment/Plan Problem List/Assessment/Plan 05/22/24 no new complaints, abdomen soft, non distended, appropriately tender, NGT to LCS , patient to ambulate every 4 hours , NPO 05/23/24 - NPO , denies nausea or vomiting, ERICA drain minimal serous fluid, abdomen soft, non distended, wounds clean dry and intact, patient to ambulate Plan discussed with: Patient MIKO TAYLOR SENIOR SOFTWARE QUALITY ENGINEER May 23, 2024 14:27
[2024-05-24] VITALS (9 sets, daily range): BP systolic 152–168; BP diastolic 65–109; PULSE 81–90; RESP 16–29; TEMP 98.1–98.3; O2SAT 92–96
--- NOTE | 2024-05-24 06:46 | DVH ---
CHEST RADIOGRAPH Indication:ng tube placement Technique: Single frontal view of the chest was obtained Comparison: XY CHEST XRAY 1 VIEW on DOS: 05/20/24, XY CHEST PORTABLE on DOS: 05/20/24, XY CHEST XRAY 1 VIEW on DOS: 05/20/24 FINDINGS: Lines and Tubes: Enteric catheter in satisfactory position. Lungs: Left basilar opacity Pleura: No effusion. Right costophrenic angle not included within the of view. No pneumothorax. Cardiomediastinal contours: Unremarkable Bones: Unremarkable IMPRESSION: Enteric catheter in satisfactory position. Left basilar opacity.
[2024-05-24] MEDS: PANTOPRAZOLE 40mg/50ML NS AE 50 ML IV SCH (09:15)
--- NOTE | 2024-05-24 09:28 | DVHPN2 ---
Subjective Pt. reports positive BM. Ambulating. Pain controlled. Reviewed: Care Plan, H&P, Labs, Medications, Previous Orders Changes from previous H/P or p: Changes General: Per HPI Eyes: No Pain, No Vision change, No Conjunctivae inflammation, No Eyelid inflammation, No Other, No Redness ENT: No Ear pain, No Ear discharge, No Nose pain, No Nose discharge, No Nose congestion, No Mouth pain, No Mouth swelling, No Throat pain, No Throat swelling, No Other Cardiovascular: No Chest Pain, No Palpitations, No Orthopnea, No Paroxysmal Noc. Dyspnea, No Edema, No Lt Headedness, No Other Respiratory: No Cough, No Dry, No Shortness of breath, No SOB with excertion, No Wheezing, No Hemoptysis, No Pleuritic Pain, No Sputum, No Other Gastrointestinal: Abdominal Pain Genitourinary: No Dysuria, No Frequency, No Incontinence, No Hematuria, No Retention, No Other Skin: No Rash, No Lesions, No Jaundice, No Bruising, No Other Objective Vitals Vital Signs Date Time Temp Pulse Resp B/P (MAP) Pulse Ox O2 Delivery O2 Flow Rate FiO2 05/24/24 09:00 98.1 81 20 159/106 (123) 94 98.1 05/23/24 20:00 Nasal Cannula* 3 32 Intake/Output Intake and Output 05/24/24 07:00 Intake Total 1200 ml Output Total 1080 ml Balance 120 ml Intake Oral 0 ml IV Total 1200 ml Output Urine Total 750 ml Gastric Drainage Total 80 ml Drainage Total 250 ml # Bowel Movements 1 General Appearance: Alert, Oriented X3, Cooperative, mild distress HEENT: Atraumatic, PERRLA Lungs: Clear to auscultation, Normal air movement Cardiovascular: Normal S1, Normal S2 Abdomen: Normal bowel sounds, Soft, Other (NG with Bilious drainage) Genitourinary: No Apparent Abnormalities (Shi catheter) Musculoskeletal: Normal sensory function, Normal motor function Extremities: No clubbing, No cyanosis Neuro: Normal gait, Normal speech Psych/Mental Status: Mental status NL, Mood NL Medications Current Medications Medications Dose Ordered Sig/Binta Route Start Time Stop Time Status Last Admin Dose Admin Nitroglycerin 0.4 mg Q5MINP PRN SL 05/20/24 13:45 Morphine Sulfate 2 mg Q30M PRN IV 05/20/24 13:45 Ceftriaxone Sodium 50 ml @ 100 mls/hr DAILY@09 IV 05/21/24 09:00 05/24/24 08:02 100 MLS/HR Ondansetron HCl 4 mg Q4HPRN PRN IV 05/20/24 16:15 Dextrose/Sodium Chloride 1,000 ml @ 100 mls/hr Q10H IV 05/21/24 11:15 05/23/24 04:15 100 MLS/HR Morphine Sulfate 2 mg Q4HPRN PRN IV 05/21/24 12:30 05/24/24 06:15 2 MG Labetalol HCl 10 mg Q2HPRN PRN IV 05/21/24 12:30 05/24/24 08:02 10 MG Pantoprazole Sodium 50 ml @ 10 mls/hr Q5H IV 05/24/24 09:15 UNV Pantoprazole Sodium 40 mg BID IV 05/24/24 22:00 UNV Laboratory Results Laboratory Tests 05/22/24 05:11 Microbiology Microbiology Date/Time Source Procedure Growth Status 05/20/24 15:41 Peritoneal Fluid Gram Stain - Final Resulted 05/20/24 15:41 Peritoneal Fluid Anaerobic Culture - Preliminary Resulted Labs and/or images reviewed: Labs reviewed by me, Image(s) reviewed by me Assessment/Plan Assessment/Plan Impression: -perforated ulcer -sepsis -obesity -primary hypertension -dyslipidemia Plan: -events: Positive BM. Awaiting Gastrografin Study (Today) -surgical consultation : Recommendations reviewed. -IV antibiotic therapy: Zosyn -change IV fluids to D5 half NS at 100 mL/hr. DC banana bag -NPO status -Protonix drip, stop after current bag. Change to 40 BID -out of bed as tolerated. Incentive spirometer q.1 hour while awake -pain management -repeat labs in a.m. -SCDs Total time spent with patient discussing and formulating plan of care: 35 minutes. This medical document was created using an electronic medical record system with [employer] dictation system. Although this document has been carefully reviewed, there may still be some phonetic and typographical errors. These areas are purely typographical due to imperfections of the software programs, and do not reflect any compromise in the patient's medical care. Plan discussed with: Patient, Other (Rn) My Orders Orders - HELEN GUZMAN CABLE TESTERS HELPER Procedure Category Date Status Time * Wound Consult CONS 05/24/24 Transmitted Pantoprazole PHA 05/24/24 Logged 40mg/50ml Ns Ae 09:15 Pantoprazole PHA 05/24/24 Logged (Protonix) 22:00 Basic Metabolic Panel LAB 05/25/24 Verified 04:00 Complete Blood Count LAB 05/24/24 Transmitted 09:16 Magnesium LAB 05/25/24 Verified 04:00 Date of Service: May 24, 2024 Billing Provider: HELEN GUZMAN NP Common Visit Codes: [id number] INP/OBS CARE(HIGH) HELEN GUZMAN NP May 24, 2024 09:28
[2024-05-24 10:41] LABS: Basophils # (auto) 0 10 ^3/uL (0-0.2); Basophils % (auto) 0.2 % (0.0-2.0); Eosinophils # (auto) 0.1 10 ^3/uL (0-0.8); Eosinophils % (auto) 1.1 % (0.0-7.0); Hematocrit 49.1 % (41.0-53.0); Hemoglobin 16.4 g/dL (13.5-17.5); Lymphocytes % (auto) 7.9 % (10.0-50.0); Mean Corpuscular Hemoglobin 32.9 pg (28.0-32.0); Mean Corpuscular Hgb Conc. 33.3 g/dL (32.0-36.0); Mean Corpuscular Volume 98.7 fL (80.0-100.0); Monocytes # (auto) 1.2 10 ^3/uL (0-1.3); Monocytes % (auto) 9.6 % (0.0-12.0); Neutrophils # (auto) 9.8 10 ^3/uL (1.6-8.6); Neutrophils % (auto) 81.2 % (37.0-80.0); Nucleated Red Blood Cells % 0.1 %; Platelet Count (auto) 149 10^3/uL (140-450); Red Blood Cells 4.97 10^6/uL (4.5-5.90); Red Cell Distribution Width 15.6 % (11.8-14.3); White Blood Cell 12.1 10^3/uL (4.4-10.8)
[2024-05-24] MEDS: GASTROGRAFIN 120 ML SOL ONE (12:13)
--- NOTE | 2024-05-24 13:14 | DVH ---
CLINICAL HISTORY: eval 4 persistent leak from repaired perf ulcer at pylorus COMPARISON: None CONTRAST: Type of contrast: Gastrografin Contrast ingested: 100 ml PROCEDURE/FINDINGS: Enteric contrast is present in the stomach. Surgical drain in the epigastrium. Postsurgical changes in the midline of the abdomen. Enteric contrast opacifies the stomach, pylorus and duodenum. No extravasation. IMPRESSION: Unremarkable upper GI exam. No findings to suggest perforation or leak at the pylorus.
--- NOTE | 2024-05-24 13:58 | DVHPN2 ---
Progress Note Date Seen: May 24, 2024 Medical Necessity Reason Pt with a Central, PICC or Fol: No Subjective Patient reports: Feels better Review of Systems: HEENT:Normal, CVS:Normal, RESPIRATORY:Normal, GI:Normal, :Normal, NEURO:Normal Objective vital signs Vital Sign Date Time Temp Pulse Resp B/P (MAP) Pulse Ox O2 Delivery O2 Flow Rate FiO2 05/24/24 13:51 76 163/90 05/24/24 13:00 98.1 21 92 98.1 05/24/24 08:00 Nasal Cannula* 3 32 Total Intake and Output 05/23/24 05/23/24 05/24/24 15:00 23:00 07:00 Intake Total 50 ml 1050 ml 100 ml Output Total 330 ml 750 ml Balance 50 ml 720 ml -650 ml medications Current Medications Medications Dose Ordered Sig/Binta Route Start Time Stop Time Status Last Admin Dose Admin Nitroglycerin 0.4 mg Q5MINP PRN SL 05/20/24 13:45 Morphine Sulfate 2 mg Q30M PRN IV 05/20/24 13:45 Ceftriaxone Sodium 50 ml @ 100 mls/hr DAILY@09 IV 05/21/24 09:00 05/24/24 08:02 100 MLS/HR Ondansetron HCl 4 mg Q4HPRN PRN IV 05/20/24 16:15 Dextrose/Sodium Chloride 1,000 ml @ 100 mls/hr Q10H IV 05/21/24 11:15 05/24/24 09:31 100 MLS/HR Morphine Sulfate 2 mg Q4HPRN PRN IV 05/21/24 12:30 05/24/24 06:15 2 MG Labetalol HCl 10 mg Q2HPRN PRN IV 05/21/24 12:30 05/24/24 13:51 10 MG Pantoprazole Sodium 40 mg BID IV 05/24/24 22:00 Examination: GENERAL:Normal, HEENT:Normal, NECK:Normal, LUNGS:Normal, CVS:Normal, ABDOMEN:Normal, SKIN:Normal laboratory and microbiology Laboratory Tests 05/24/24 09:50 05/22/24 05:11 Test 05/22/24 05:11 Range/Units Serum Glucose 120 H 74-106 mg/dL Problem List/Assessment/Plan Problem List/Assessment/Plan 05/22/24 no new complaints, abdomen soft, non distended, appropriately tender, NGT to LCS , patient to ambulate every 4 hours , NPO 05/23/24 - NPO , denies nausea or vomiting, ERICA drain minimal serous fluid, abdomen soft, non distended, wounds clean dry and intact, patient to ambulate 05/24/24 - wound clean dry and intact, abdomen soft, non distended, feeling better review of UGI IMPRESSION: Unremarkable upper GI exam. No findings to suggest perforation or leak at the pylorus. DC NGT , start on clear liquids Plan discussed with: Patient, Other (Dr. Moore ) MIKO TAYLOR SLOT EDITOR May 24, 2024 13:58
[2024-05-24] MEDS: PANTOPRAZOLE 40 MG/10 ML VIAL INJ IV SCH (21:52)
[2024-05-25] VITALS (8 sets, daily range): BP systolic 126–168; BP diastolic 89–96; PULSE 79–95; RESP 16–20; TEMP 97.8–99.2; O2SAT 91–98
[2024-05-25 06:19] LABS: Anion Gap 1 (5-15); Calcium 9.2 mg/dL (8.7-10.4); Carbon Dioxide 37 mmol/L (20-31); Chloride 99 mmol/L (98-107); Potassium 4.2 mmol/L (3.5-5.1); Sodium 137 mmol/L (136-145)
[2024-05-25 06:25] LABS: BUN/Creatinine Ratio 20.3 (10.0-20.0); Blood Urea Nitrogen 14 mg/dL (9-23); Glucose 123 mg/dL (74-106)
[2024-05-25 06:26] LABS: Magnesium 2.4 mg/dL (1.6-2.6)
[2024-05-25] MEDS: hydroCHLOROthiazide 25 MG TAB PO SCH (10:18)
[2024-05-25] MEDS: LISINOPRIL 20 MG TAB PO SCH (10:19)
--- NOTE | 2024-05-25 11:03 | DVHPN2 ---
Subjective Patient reports bilateral upper extremity swelling. Reviewed: Care Plan, H&P, Labs, Medications, Previous Orders Changes from previous H/P or p: No Changes General: Per HPI Eyes: No Pain, No Vision change, No Conjunctivae inflammation, No Eyelid inflammation, No Other, No Redness ENT: No Ear pain, No Ear discharge, No Nose pain, No Nose discharge, No Nose congestion, No Mouth pain, No Mouth swelling, No Throat pain, No Throat swelling, No Other Cardiovascular: No Chest Pain, No Palpitations, No Orthopnea, No Paroxysmal Noc. Dyspnea, No Edema, No Lt Headedness, No Other Respiratory: No Cough, No Dry, No Shortness of breath, No SOB with excertion, No Wheezing, No Hemoptysis, No Pleuritic Pain, No Sputum, No Other Gastrointestinal: Abdominal Pain Genitourinary: No Dysuria, No Frequency, No Incontinence, No Hematuria, No Retention, No Other Skin: No Rash, No Lesions, No Jaundice, No Bruising, No Other Objective Vitals Vital Signs Date Time Temp Pulse Resp B/P (MAP) Pulse Ox O2 Delivery O2 Flow Rate FiO2 05/25/24 10:20 82 20 168/96 05/25/24 09:00 97.8 96 97.8 05/25/24 08:10 Nasal Cannula* 3 32 Intake/Output Intake and Output 05/25/24 07:00 Intake Total 1550 ml Output Total 2765 ml Balance -1215 ml Intake Oral 450 ml IV Total 1100 ml Output Urine Total 2550 ml Gastric Drainage Total 200 ml Drainage Total 15 ml # Bowel Movements 3 General Appearance: Alert, Oriented X3, Cooperative, mild distress HEENT: Atraumatic, PERRLA Lungs: Clear to auscultation, Normal air movement Cardiovascular: Normal S1, Normal S2 Abdomen: Normal bowel sounds, Soft, Other (NG with Bilious drainage) Genitourinary: No Apparent Abnormalities (Shi catheter) Musculoskeletal: Normal sensory function, Normal motor function Extremities: No clubbing, No cyanosis Neuro: Normal gait, Normal speech Psych/Mental Status: Mental status NL, Mood NL Medications Current Medications Medications Dose Ordered Sig/Binta Route Start Time Stop Time Status Last Admin Dose Admin Nitroglycerin 0.4 mg Q5MINP PRN SL 05/20/24 13:45 Morphine Sulfate 2 mg Q30M PRN IV 05/20/24 13:45 Ceftriaxone Sodium 50 ml @ 100 mls/hr DAILY@09 IV 05/21/24 09:00 05/25/24 09:06 100 MLS/HR Ondansetron HCl 4 mg Q4HPRN PRN IV 05/20/24 16:15 Morphine Sulfate 2 mg Q4HPRN PRN IV 05/21/24 12:30 05/25/24 10:20 2 MG Labetalol HCl 10 mg Q2HPRN PRN IV 05/21/24 12:30 05/24/24 18:26 10 MG Pantoprazole Sodium 40 mg BID IV 05/24/24 22:00 05/25/24 10:18 40 MG Hydrochlorothiazide 25 mg DAILY PO 05/25/24 10:00 05/25/24 10:18 25 MG Lisinopril 20 mg DAILY PO 05/25/24 10:00 05/25/24 10:19 20 MG Laboratory Results Laboratory Tests 05/24/24 09:50 05/25/24 04:55 Chemistry Test 05/25/24 04:55 Calcium Level 9.2 mg/dL (8.7-10.4) Magnesium Level 2.4 mg/dL (1.6-2.6) Microbiology Microbiology Date/Time Source Procedure Growth Status 05/20/24 15:41 Peritoneal Fluid Gram Stain - Final Resulted 05/20/24 15:41 Peritoneal Fluid Anaerobic Culture - Preliminary Resulted Labs and/or images reviewed: Labs reviewed by me, Image(s) reviewed by me Assessment/Plan Assessment/Plan Impression: -perforated ulcer -sepsis -obesity -primary hypertension -dyslipidemia -acute hypoxic respiratory failure -community-acquired pneumonia, probable Gram-positive/Gram-negative etiology Plan: -events: Gastrografin study negative for extravasation. Patient was started on clear liquid diet. -surgical consultation : Recommendations reviewed. -IV antibiotic therapy: Rocephin -DC IV fluid -continue 40 mg Protonix b.i.d. -start p.o. antihypertensives, p.o. Lasix -NG tube discontinued. Advance to full liquid diet -out of bed as tolerated. Incentive spirometer q.1 hour while awake -pain management -SCDs Total time spent with patient discussing and formulating plan of care: 35 minutes. This medical document was created using an electronic medical record system with [employer] dictation system. Although this document has been carefully reviewed, there may still be some phonetic and typographical errors. These areas are purely typographical due to imperfections of the software programs, and do not reflect any compromise in the patient's medical care. Plan discussed with: Patient, Other (RN) My Orders Orders - HELEN GUZMAN NP Procedure Category Date Status Time Hydrochlorothiazide PHA 05/25/24 In Process Tablet (Hydrochlorot 10:00 Lisinopril Tablet PHA 05/25/24 In Process (Zestril Tablet) 10:00 Discontinue Shi ADAM 05/25/24 In Process Catheter 10:55 Furosemide Tablet PHA 05/25/24 Logged (Lasix Tablet) 11:00 Full Liq Diet DIET 05/25/24 Transmitted Lunch Date of Service: May 25, 2024 Billing Provider: HELEN GUZMAN NP Common Visit Codes: [id number] INP/OBS CARE(HIGH) HELEN GUZMAN NP May 25, 2024 11:03
[2024-05-25] MEDS: FUROSEMIDE 20 MG TAB PO ONE (12:56)
--- NOTE | 2024-05-25 13:55 | DVHPN2 ---
Progress Note Date Seen: May 25, 2024 Medical Necessity Reason Pt with a Central, PICC or Fol: No Objective vital signs Vital Sign Date Time Temp Pulse Resp B/P (MAP) Pulse Ox O2 Delivery O2 Flow Rate FiO2 05/25/24 12:56 149/96 05/25/24 10:50 85 18 05/25/24 09:00 97.8 96 97.8 05/25/24 08:10 Nasal Cannula* 3 32 Total Intake and Output 05/24/24 05/24/24 05/25/24 15:00 23:00 07:00 Intake Total 100 ml 1000 ml 450 ml Output Total 1465 ml 1300 ml Balance 100 ml -465 ml -850 ml medications Current Medications Medications Dose Ordered Sig/Binta Route Start Time Stop Time Status Last Admin Dose Admin Nitroglycerin 0.4 mg Q5MINP PRN SL 05/20/24 13:45 Morphine Sulfate 2 mg Q30M PRN IV 05/20/24 13:45 Ceftriaxone Sodium 50 ml @ 100 mls/hr DAILY@09 IV 05/21/24 09:00 05/25/24 09:06 100 MLS/HR Ondansetron HCl 4 mg Q4HPRN PRN IV 05/20/24 16:15 Morphine Sulfate 2 mg Q4HPRN PRN IV 05/21/24 12:30 05/25/24 10:20 2 MG Labetalol HCl 10 mg Q2HPRN PRN IV 05/21/24 12:30 05/24/24 18:26 10 MG Pantoprazole Sodium 40 mg BID IV 05/24/24 22:00 05/25/24 10:18 40 MG Hydrochlorothiazide 25 mg DAILY PO 05/25/24 10:00 05/25/24 10:18 25 MG Lisinopril 20 mg DAILY PO 05/25/24 10:00 05/25/24 10:19 20 MG laboratory and microbiology Laboratory Tests 05/25/24 04:55 05/24/24 09:50 Test 05/25/24 04:55 Range/Units Serum Glucose 123 H 74-106 mg/dL Problem List/Assessment/Plan Problem List/Assessment/Plan 05/21/24 hemodynamically stable,abdomen appropriately tender, drainage sero sanguineous, operative findings explained to patient, he will need a gastrografin UGI prior to removing his NG tube.(explained to nurse) 05/25/24 feels well, normal bowel and bladder function, wound clean and well approximated,cleared for discharge tomorrow Plan discussed with: Patient ROBSON MCADAMS MD May 25, 2024 13:55
[2024-05-25] MEDS: HYDROcodone-ACET 5/325MG TAB PO PRN (18:44)
[2024-05-26] VITALS (8 sets, daily range): BP systolic 136–164; BP diastolic 70–89; PULSE 84–92; RESP 18–20; TEMP 97.6–99.6; O2SAT 90–94
--- NOTE | 2024-05-26 10:42 | DVHPN2 ---
Subjective Now reports having severe difficulty walking due to bilateral foot pain. Patient also reports having left knee swelling. Reviewed: Care Plan, H&P, Labs, Medications, Previous Orders Changes from previous H/P or p: Changes General: Per HPI Eyes: No Pain, No Vision change, No Conjunctivae inflammation, No Eyelid inflammation, No Other, No Redness ENT: No Ear pain, No Ear discharge, No Nose pain, No Nose discharge, No Nose congestion, No Mouth pain, No Mouth swelling, No Throat pain, No Throat swelling, No Other Cardiovascular: No Chest Pain, No Palpitations, No Orthopnea, No Paroxysmal Noc. Dyspnea, No Edema, No Lt Headedness, No Other Respiratory: No Cough, No Dry, No Shortness of breath, No SOB with excertion, No Wheezing, No Hemoptysis, No Pleuritic Pain, No Sputum, No Other Gastrointestinal: Abdominal Pain Genitourinary: No Dysuria, No Frequency, No Incontinence, No Hematuria, No Retention, No Other Skin: No Rash, No Lesions, No Jaundice, No Bruising, No Other Objective Vitals Vital Signs Date Time Temp Pulse Resp B/P (MAP) Pulse Ox O2 Delivery O2 Flow Rate FiO2 05/26/24 09:45 91 18 155/83 05/26/24 09:00 98.1 90 98.1 05/25/24 20:00 Nasal Cannula* 2 28 Intake/Output Intake and Output 05/26/24 07:00 Intake Total 1600 ml Output Total 1200 ml Balance 400 ml Intake Oral 1600 ml Output Urine Total 1200 ml General Appearance: Alert, Oriented X3, Cooperative, mild distress HEENT: Atraumatic, PERRLA Lungs: Clear to auscultation, Normal air movement Cardiovascular: Normal S1, Normal S2 Abdomen: Normal bowel sounds, Soft, Other (NG with Bilious drainage) Genitourinary: No Apparent Abnormalities (Shi catheter) Musculoskeletal: Normal sensory function, Normal motor function Extremities: No clubbing, No cyanosis Neuro: Normal gait, Normal speech Psych/Mental Status: Mental status NL, Mood NL Medications Current Medications Medications Dose Ordered Sig/Binta Route Start Time Stop Time Status Last Admin Dose Admin Nitroglycerin 0.4 mg Q5MINP PRN SL 05/20/24 13:45 Morphine Sulfate 2 mg Q30M PRN IV 05/20/24 13:45 Ceftriaxone Sodium 50 ml @ 100 mls/hr DAILY@09 IV 11/8/24 09:00 05/26/24 08:11 100 MLS/HR Ondansetron HCl 4 mg Q4HPRN PRN IV 05/20/24 16:15 Morphine Sulfate 2 mg Q4HPRN PRN IV 05/21/24 12:30 05/26/24 08:14 2 MG Labetalol HCl 10 mg Q2HPRN PRN IV 05/21/24 12:30 05/26/24 09:44 10 MG Pantoprazole Sodium 40 mg BID IV 05/24/24 22:00 05/26/24 09:43 40 MG Hydrochlorothiazide 25 mg DAILY PO 05/25/24 10:00 05/26/24 09:43 25 MG Lisinopril 20 mg DAILY PO 05/25/24 10:00 05/26/24 09:42 20 MG Acetaminophen/ Hydrocodone Bitart 1 tab Q6HPRN PRN PO 05/25/24 16:00 05/26/24 01:43 1 TAB Laboratory Results Laboratory Tests 05/24/24 09:50 05/25/24 04:55 Microbiology Microbiology Date/Time Source Procedure Growth Status 05/20/24 15:41 Peritoneal Fluid Gram Stain - Final Complete 05/20/24 15:41 Peritoneal Fluid Anaerobic Culture - Final Complete Labs and/or images reviewed: Labs reviewed by me, Image(s) reviewed by me Assessment/Plan Assessment/Plan Impression: -perforated ulcer -sepsis -obesity -primary hypertension -dyslipidemia -acute hypoxic respiratory failure -community-acquired pneumonia, probable Gram-positive/Gram-negative etiology Plan: -events: Now reporting foot pain and left knee swelling. Patient reports that he is having severe difficulty walking. -surgical consultation : Cleared for discharge -IV antibiotic therapy: Rocephin -check uric acid level, BMP -start MVI -continue 40 mg Protonix b.i.d. -start p.o. antihypertensives, p.o. Lasix -continue full liquid diet -out of bed as tolerated. Incentive spirometer q.1 hour while awake -pain management -SCDs -PT consultation Total time spent with patient discussing and formulating plan of care: 35 minutes. This medical document was created using an electronic medical record system with [employer] dictation system. Although this document has been carefully reviewed, there may still be some phonetic and typographical errors. These areas are purely typographical due to imperfections of the software programs, and do not reflect any compromise in the patient's medical care. Plan discussed with: Patient, Other (RN) My Orders Orders - HELEN GUZMAN NP Procedure Category Date Status Time Discontinue Shi ADAM 05/25/24 In Process Catheter 10:55 Full Liq Diet DIET 05/25/24 Transmitted Lunch Hydrocodone-Acet PHA 05/25/24 In Process 5/325mg Tab (Preemption 16:00 Basic Metabolic Panel LAB 05/26/24 Transmitted 10:37 Uric Acid LAB 05/26/24 Transmitted 10:37 Pt Request For Service PT 05/26/24 Logged 10:37 Dme: Walker DME 05/26/24 Transmitted 10:37 Multiple Vitamin PHA 05/26/24 Transmitted Tablet (Mvi Tab) 10:45 Multiple Vitamin PHA 05/27/24 Transmitted Tablet (Mvi Tab) 10:00 Date of Service: May 26, 2024 Billing Provider: HELEN GUZMAN NP Common Visit Codes: [id number] INP/OBS CARE(HIGH) HELEN GUZMAN NP May 26, 2024 10:42
[2024-05-26 12:22] LABS: Chloride 98 mmol/L (98-107); Potassium 3.9 mmol/L (3.5-5.1); Sodium 134 mmol/L (136-145)
[2024-05-26 12:23] LABS: Anion Gap 4 (5-15); Carbon Dioxide 32 mmol/L (20-31)
[2024-05-26 12:24] LABS: Calcium 9.3 mg/dL (8.7-10.4)
[2024-05-26 12:28] LABS: BUN/Creatinine Ratio 15.9 (10.0-20.0); Blood Urea Nitrogen 11 mg/dL (9-23); Glucose 114 mg/dL (74-106)
[2024-05-26 12:36] LABS: Uric Acid 6.7 mg/dL (3.7-9.2)
--- NOTE | 2024-05-26 16:32 | DVH ---
EXAM: US Duplex Bilateral Lower Extremities Veins CLINICAL INDICATION: LOWER EXT. PAIN. SWELLING TECHNIQUE: Real-time duplex ultrasound scan of the bilateral lower extremity veins integrating B-mod e two-dimensional vascular structure, Doppler spectral analysis, color flow Doppler imaging and compr ession. COMPARISON: None FINDINGS: RIGHT DEEP VEINS: Unremarkable. No DVT in the right common femoral, femoral, proximal deep femoral or popliteal veins. The veins demonstrate normal color flow, are normally compressible, with normal phasic flow and/or augmentation response. RIGHT SUPERFICIAL VEINS: Unremarkable. No thrombus in the visualized right great saphenous vein. LEFT DEEP VEINS: Unremarkable. No DVT in the left common femoral, femoral, proximal deep femoral or popliteal veins. The veins demonstrate normal color flow, are normally compressible, with normal ph asic flow and/or augmentation response. LEFT SUPERFICIAL VEINS: Unremarkable. No thrombus in the visualized left great saphenous vein. SOFT TISSUES: No acute findings. No popliteal cyst. OTHER FINDINGS: . . Prior complex cysts of the left knee measuring up to 7.9 cm. IMPRESSION: No DVT. HS:Y
[2024-05-26] MEDS: MULTIPLE VITAMIN TAB PO ONE (16:48)
[2024-05-27] VITALS (11 sets, daily range): BP systolic 120–153; BP diastolic 70–90; PULSE 82–101; RESP 17–18; TEMP 97.9–99.4; O2SAT 90–94
--- NOTE | 2024-05-27 08:46 | DVHPN2 ---
Progress Note Date Seen: May 27, 2024 Medical Necessity Reason Pt with a Central, PICC or Fol: No Objective vital signs Vital Sign Date Time Temp Pulse Resp B/P (MAP) Pulse Ox O2 Delivery O2 Flow Rate FiO2 05/27/24 05:00 98.1 98 18 153/82 (105) 90 98.1 05/26/24 20:00 Nasal Cannula* 2 28 Total Intake and Output 05/26/24 05/26/24 05/27/24 15:00 23:00 07:00 Intake Total 50 ml 240 ml 500 ml Output Total 30 ml 700 ml 375 ml Balance 20 ml -460 ml 125 ml medications Current Medications Medications Dose Ordered Sig/Binta Route Start Time Stop Time Status Last Admin Dose Admin Nitroglycerin 0.4 mg Q5MINP PRN SL 05/20/24 13:45 Morphine Sulfate 2 mg Q30M PRN IV 05/20/24 13:45 Ceftriaxone Sodium 50 ml @ 100 mls/hr DAILY@09 IV 05/21/24 09:00 05/27/24 08:20 100 MLS/HR Ondansetron HCl 4 mg Q4HPRN PRN IV 05/20/24 16:15 Morphine Sulfate 2 mg Q4HPRN PRN IV 05/21/24 12:30 05/26/24 20:53 2 MG Labetalol HCl 10 mg Q2HPRN PRN IV 05/21/24 12:30 05/26/24 09:44 10 MG Pantoprazole Sodium 40 mg BID IV 05/24/24 22:00 05/26/24 21:59 40 MG Hydrochlorothiazide 25 mg DAILY PO 05/25/24 10:00 05/26/24 09:43 25 MG Lisinopril 20 mg DAILY PO 05/25/24 10:00 05/26/24 09:42 20 MG Acetaminophen/ Hydrocodone Bitart 1 tab Q6HPRN PRN PO 05/25/24 16:00 05/27/24 08:21 1 TAB Multivitamins 1 tab DAILY PO 05/27/24 10:00 laboratory and microbiology Laboratory Tests 05/26/24 11:50 05/24/24 09:50 Test 05/26/24 11:50 Range/Units Serum Glucose 114 H 74-106 mg/dL Problem List/Assessment/Plan Problem List/Assessment/Plan 05/22/24 no new complaints, abdomen soft, non distended, appropriately tender, NGT to LCS , patient to ambulate every 4 hours , NPO 05/23/24 - NPO , denies nausea or vomiting, ERICA drain minimal serous fluid, abdomen soft, non distended, wounds clean dry and intact, patient to ambulate 05/24/24 - wound clean dry and intact, abdomen soft, non distended, feeling better review of UGI IMPRESSION: Unremarkable upper GI exam. No findings to suggest perforation or leak at the pylorus. DC NGT , start on clear liquids 05/27/24 - patiet complaint of bilateral foot pain , patient being kept for bilateral foot pain, patient ok to discharge please provide education on emptying ERICA drain and Erica to Bulb suction, patient to follow up in clinic in two weeks Plan discussed with: Patient, Other (Dr. Moore) MIKO TAYLOR ROBOTICS TESTING TECHNICIAN May 27, 2024 08:46
[2024-05-27] MEDS: MULTIPLE VITAMIN TAB PO SCH (09:17)
[2024-05-27] MEDS: KETOROLAC TROMETH 30 MG/ML 1ML VIAL IV ONE (09:20)
--- NOTE | 2024-05-27 09:39 | DVHPN2 ---
Subjective Now reports having severe difficulty walking due to bilateral foot pain. Patient also reports having left knee swelling. Reviewed: Care Plan, H&P, Labs, Medications, Previous Orders Changes from previous H/P or p: No Changes General: Per HPI Eyes: No Pain, No Vision change, No Conjunctivae inflammation, No Eyelid inflammation, No Other, No Redness ENT: No Ear pain, No Ear discharge, No Nose pain, No Nose discharge, No Nose congestion, No Mouth pain, No Mouth swelling, No Throat pain, No Throat swelling, No Other Cardiovascular: No Chest Pain, No Palpitations, No Orthopnea, No Paroxysmal Noc. Dyspnea, No Edema, No Lt Headedness, No Other Respiratory: No Cough, No Dry, No Shortness of breath, No SOB with excertion, No Wheezing, No Hemoptysis, No Pleuritic Pain, No Sputum, No Other Gastrointestinal: Abdominal Pain Genitourinary: No Dysuria, No Frequency, No Incontinence, No Hematuria, No Retention, No Other Skin: No Rash, No Lesions, No Jaundice, No Bruising, No Other Objective Vitals Vital Signs Date Time Temp Pulse Resp B/P (MAP) Pulse Ox O2 Delivery O2 Flow Rate FiO2 05/27/24 09:18 98.2 101 18 131/90 (104) 94 98.2 05/26/24 20:00 Nasal Cannula* 2 28 Intake/Output Intake and Output 05/27/24 07:00 Intake Total 790 ml Output Total 1105 ml Balance -315 ml Intake Oral 740 ml IV Total 50 ml Output Urine Total 1075 ml Other 30 ml General Appearance: Alert, Oriented X3, Cooperative, mild distress HEENT: Atraumatic, PERRLA Lungs: Clear to auscultation, Normal air movement Cardiovascular: Normal S1, Normal S2 Abdomen: Normal bowel sounds, Soft, Other (NG with Bilious drainage) Genitourinary: No Apparent Abnormalities (Shi catheter) Musculoskeletal: Normal sensory function, Normal motor function Extremities: No clubbing, No cyanosis Neuro: Normal gait, Normal speech Psych/Mental Status: Mental status NL, Mood NL Medications Current Medications Medications Dose Ordered Sig/Binta Route Start Time Stop Time Status Last Admin Dose Admin Nitroglycerin 0.4 mg Q5MINP PRN SL 05/20/24 13:45 Morphine Sulfate 2 mg Q30M PRN IV 05/20/24 13:45 Ceftriaxone Sodium 50 ml @ 100 mls/hr DAILY@09 IV 05/21/24 09:00 05/27/24 08:20 100 MLS/HR Ondansetron HCl 4 mg Q4HPRN PRN IV 05/20/24 16:15 Morphine Sulfate 2 mg Q4HPRN PRN IV 05/21/24 12:30 05/26/24 20:53 2 MG Labetalol HCl 10 mg Q2HPRN PRN IV 05/21/24 12:30 05/26/24 09:44 10 MG Pantoprazole Sodium 40 mg BID IV 05/24/24 22:00 05/27/24 09:15 40 MG Hydrochlorothiazide 25 mg DAILY PO 05/25/24 10:00 05/27/24 09:16 25 MG Lisinopril 20 mg DAILY PO 05/25/24 10:00 05/27/24 09:18 20 MG Acetaminophen/ Hydrocodone Bitart 1 tab Q6HPRN PRN PO 05/25/24 16:00 05/27/24 08:21 1 TAB Multivitamins 1 tab DAILY PO 05/27/24 10:00 05/27/24 09:17 1 TAB Laboratory Results Laboratory Tests 05/24/24 09:50 05/26/24 11:50 Chemistry Test 05/26/24 11:50 Calcium Level 9.3 mg/dL (8.7-10.4) Microbiology Microbiology Date/Time Source Procedure Growth Status 05/20/24 15:41 Peritoneal Fluid Gram Stain - Final Complete 05/20/24 15:41 Peritoneal Fluid Anaerobic Culture - Final Complete Labs and/or images reviewed: Labs reviewed by me, Image(s) reviewed by me Assessment/Plan Assessment/Plan Impression: -perforated ulcer -sepsis -obesity -primary hypertension -dyslipidemia -acute hypoxic respiratory failure -community-acquired pneumonia, probable Gram-positive/Gram-negative etiology Plan: -events: Now reporting foot pain and left knee swelling. Patient reports that he is having severe difficulty walking. Continues to have foot pain. PT evaluation patient only ambulated 4 ft due to foot pain. DVT study of lower extremities negative. Patient also found to have normal uric acid level. Inflammatory markers are pending. Trial of Toradol. -surgical consultation : Cleared for discharge -IV antibiotic therapy: Rocephin -check uric acid level, BMP -start MVI -continue 40 mg Protonix b.i.d. -start p.o. antihypertensives, p.o. Lasix -continue full liquid diet -out of bed as tolerated. Incentive spirometer q.1 hour while awake -pain management -SCDs -PT consultation Total time spent with patient discussing and formulating plan of care: 35 minutes. This medical document was created using an electronic medical record system with [employer] dictation system. Although this document has been carefully reviewed, there may still be some phonetic and typographical errors. These areas are purely typographical due to imperfections of the software programs, and do not reflect any compromise in the patient's medical care. Plan discussed with: Patient, Other (RN) My Orders Orders - HELEN GUZMAN NP Procedure Category Date Status Time Pt Request For Service PT 05/26/24 Logged 10:37 Dme: Walker DME 05/26/24 Transmitted 10:37 Multiple Vitamin PHA 05/27/24 In Process Tablet (Mvi Tab) 10:00 Bilat Lower Dvt US 05/26/24 Resulted 15:06 Full Liq Diet DIET 05/27/24 Transmitted Breakfast Erythrocyte LAB 05/27/24 Logged Sedimentation Rate 09:06 C-Reactive Protein LAB 05/27/24 Logged 09:06 Rheumatoid Arthritis LAB 05/27/24 Logged Factor 09:06 Date of Service: May 27, 2024 Billing Provider: HELEN GUZMAN NP Common Visit Codes: [id number] INP/OBS CARE(HIGH) HELEN GUZMAN NP May 27, 2024 09:39
[2024-05-27 12:37] LABS: Erythrocyte Sedimentation Rate 60 mm/hr (0-20)
[2024-05-27] MEDS ORDERED: PERCOT PO (15:56)
[2024-05-27] MEDS ORDERED: HYDR25TA5 PO (15:56)
[2024-05-27] MEDS ORDERED: LISI20TA56 PO (15:56)
[2024-05-27] MEDS ORDERED: DICL1GEL59 EX (15:56)
--- NOTE | 2024-05-27 16:03 | DVHDS2 ---
Discharge Summary Date of Admission May 20, 2024 at 13:45 Date of Discharge: May 27, 2024 Admitting Diagnosis Perforated gastric ulcer Labs/Diagnostic Data: Laboratory Results Test 05/27/24 10:48 05/27/24 09:48 05/26/24 11:50 05/25/24 04:55 C-Reactive Protein High Sensitivity 12.36 mg/dL (<1.0) Erythrocyte Sedimentation Rate 60 mm/hr (0-20) Sodium Level 134 mmol/L (136-145) Potassium Level 3.9 mmol/L (3.5-5.1) Chloride Level 98 mmol/L (98-107) Carbon Dioxide Level 32 mmol/L (20-31) Anion Gap 4 (5-15) Blood Urea Nitrogen 11 mg/dL (9-23) Creatinine 0.69 mg/dL (0.700-1.30) Glomerular Filtration Rate Calc 103 mL/min (>90) BUN/Creatinine Ratio 15.9 (10.0-20.0) Serum Glucose 114 mg/dL (74-106) Uric Acid 6.7 mg/dL (3.7-9.2) Calcium Level 9.3 mg/dL (8.7-10.4) Magnesium Level 2.4 mg/dL (1.6-2.6) Test 05/24/24 09:50 05/22/24 05:11 05/21/24 08:08 05/20/24 19:15 White Blood Count 12.1 10^3/uL (4.4-10.8) Red Blood Count 4.97 10^6/uL (4.5-5.90) Hemoglobin 16.4 g/dL (13.5-17.5) Hematocrit 49.1 % (41.0-53.0) Mean Corpuscular Volume 98.7 fL (80.0-100.0) Mean Corpuscular Hemoglobin 32.9 pg (28.0-32.0) Mean Corpuscular Hemoglobin Concent 33.3 g/dL (32.0-36.0) Red Cell Distribution Width 15.6 % (11.8-14.3) Platelet Count 149 10^3/uL (140-450) Mean Platelet Volume 7.6 fL (6.9-10.8) Neutrophils (%) (Auto) 81.2 % (37.0-80.0) Lymphocytes (%) (Auto) 7.9 % (10.0-50.0) Monocytes (%) (Auto) 9.6 % (0.0-12.0) Eosinophils (%) (Auto) 1.1 % (0.0-7.0) Basophils (%) (Auto) 0.2 % (0.0-2.0) Neutrophils # (Auto) 9.8 10 ^3/uL (1.6-8.6) Lymphocytes # (Auto) 1.0 10 ^3/uL (0.4-5.4) Monocytes # (Auto) 1.2 10 ^3/uL (0-1.3) Eosinophils # (Auto) 0.1 10 ^3/uL (0-0.8) Basophils # (Auto) 0 10 ^3/uL (0-0.2) Nucleated Red Blood Cells 0.1 % Total Bilirubin 0.8 mg/dL (0.2-1.0) Aspartate Amino Transferase (AST) 10 U/L (13-40) Alanine Aminotransferase (ALT) 13 U/L (7-40) Alkaline Phosphatase 69 U/L (46-116) Total Protein 6.0 g/dL (5.7-8.2) Albumin 3.7 g/dL (3.2-4.8) Lactic Acid Level 1.4 mmol/L (0.4-2.0) Troponin I High Sensitivity 10 ng/L (</=54) Test 05/20/24 12:57 Differential Total Cells Counted 100.0 (100) Neutrophils % (Manual) 81 (37.0-80.0) Band Neutrophils % (Manual) 0 Lymphocytes % (Manual) 9 (10.0-50.0) Monocytes % (Manual) 10 (0-12) Eosinophils % (Manual) 0 (0-7) Basophils % (Manual) 0 (0.0-2.0) Metamyelocytes % (manual) 0 Myelocytes % (Manual) 0 Promyelocytes % (Manual) 0 Blast Cells % (Manual) 0 Reactive Lymphocytes 0 Platelet Estimate Adequate Prothrombin Time 11.9 sec (9.3-11.8) Prothrombin Time INR 1.13 (0.9-1.15) Activated Partial Thromboplast Time 26.5 SEC (24.5-34.5) Lipase 22 U/L (12-53) Other Laboratory Tests 05/26/24 11:50 05/24/24 09:50 Brief Hx & Hospital Course: History of Present Illness The patient was a 64-year-old male presenting to the emergency room with severe abdominal pain. Patient states that he was awakened approximately 3:00 a.m. with severe epigastric pain that transitioned to all four quadrants. He denies having nausea/vomiting. The patient also denies having any bowel movements since yesterday. He denies any fevers, chills, body aches. Assessment of the patient reveals severe tenderness to his generalized abdomen. CT scan reveals free air under his diaphragm, with probable perforated ulcer. Patient has already been seen by General surgery and has consented for emergent exploratory laparotomy.-significant history of the patient includes dyslipidemia and hypertension. The patient also reports drinking approximately six beers 5-6 days out of the week. Course of hospitalization: Patient was taken to operating room from the emergency room for repair of the patient's gastric ulcer. Patient was kept NPO with NG tube until Gastrografin study was performed three days later which revealed no extravasation. NG tube was removed. Patient had positive flatus as well as bowel movement. He was tolerating full liquid diet. Patient was also treated with Protonix drip which was deescalated to 40 mg IV twice a day. Patient was also treated with antibiotic therapy in the form of Zosyn. Patient's white blood cell count has improved. He was hemodynamically stable. Patient has been ambulating with the use walker, for which he states he has one at home. Patient also had difficulty with new onset of bilateral foot pain that he describes as severe pressure as well as new onset of swelling to his left knee. Inflammatory markers were performed which were elevated. Patient was given a trial dose of IV Toradol which did relieve his pain. Discussion was made with the patient regarding further pain management once he was discharged given he has new onset of gastric ulcer repair which will keep him from being treated with NSAIDs as well as steroids. The patient will be given Percocet 5/325 as needed for [id number] pain every 8 hours as well as topical diclofenac. He will also be kept on antibiotic therapy with Augmentin 500 mg p.o. x5 days as well as Protonix 40 mg p.o. twice a day for 30 days. He was instructed to follow up with the discharge Clinic in one week as well as the surgeon in 1-2 weeks. The patient was agreeable with discharge plan. All questions answered. Physical examination General: Alert and Oriented x3. No acute distress. Well-nourished. Eyes: EOMI. Anicteric. HENT: Moist mucous membranes. Lungs: Clear to auscultation bilaterally. No accessory muscle use. Cardiovascular: Regular rate and rhythm. No murmur. No JVD. Abdomen: Soft, non-tender and non-distended. No palpable masses. Extremities: No edema. Non-tender. Skin: No rashes or lesions. Warm. Neurologic: No focal neurological deficits. CN II-XII grossly intact, but not individually tested. Psychiatric: Cooperative. Appropriate mood and affect. Total time spent with patient discussing and formulating plan of care: 35 minutes. This medical document was created using an electronic medical record system with [employer] dictation system. Although this document has been carefully reviewed, there may still be some phonetic and typographical errors. These areas are purely typographical due to imperfections of the software programs, and do not reflect any compromise in the patient's medical care. Consults/Reason for consult General surgery: Perforated gastric ulcer Operations or Procedures 05/20/2024: Repair of gastric ulcer, exploratory laparotomy Condition at Discharge: Fair Final Diagnosis/Problems List Perforated gastric ulcer Secondary Diagnosis: -perforated ulcer -sepsis -obesity -primary hypertension -dyslipidemia -acute hypoxic respiratory failure -community-acquired pneumonia, probable Gram-positive/Gram-negative etiology Discharge Disposition: Home Discharge Instruct/Medications Diet: See Comment Diet comment: Stick with full liquid diet for one week Activity: No Restrictions, As Tolerated Follow Up/Referral: Follow up with Dr. Moore in 1-2 weeks Medications: Augmentin 500 mg p.o. b.i.d. x5 days Percocet 11/3250 tablet every 8 hours as needed for [id number] pain Protonix 40 mg p.o. twice a day times 30 days Topical diclofenac to feet and left knee 36 Discharge Statement: "Patient was advised to return to the ER or call 911 if any headaches, dizziness, shortness of breath, chest pain, abdominal pain, bleeding, fevers, or worsening of medical condition. Patient was counseled about treatment plan, medications, possible side effects, patientverbalized understanding. All questions were answered to the best of my ability. This discharge took greater then 30 minutes in planning, reviewing documentation, counseling the patient, and discussing with other team members." DME: Diagnosis: Perforated Peptic Ulcer ASSESSMENT ASSESSMENT Assessment Perforated gastric ulcer Date of Service: May 27, 2024 Billing Provider: HELEN GUZMAN NP Common Visit Codes: [id number] INP/OBS CARE(HIGH) HELEN GUZMAN NP May 27, 2024 16:03
[2024-05-27] MEDS ORDERED: PANT40TA2 PO (16:05)
== END 2024-05-27 20:35 | disposition home or self-care (01) | DRG 710 ==
LOC: ER 11:55 → TELE 13:45 → TELE-EAST 18:13 → EAST 05-21 14:14 → CENTRAL 05-23 17:31
PROVIDERS: ADMIT Nurse Practitioner Acute Care; ATTEND Nurse Practitioner Acute Care
PROC: 0DQ70ZZ Repair Stomach, Pylorus, Open Approach (ICD-10-PCS; principal; 2024-05-20 15:11)
DX: A41.9 Sepsis, unspecified organism (principal); J96.01 Acute respiratory failure with hypoxia; K25.5 Chronic or unspecified gastric ulcer with perforation; J15.69 Pneumonia due to other Gram-negative bacteria; K65.9 Peritonitis, unspecified; J15.9 Unspecified bacterial pneumonia; E66.9 Obesity, unspecified; Z68.41 Body mass index [BMI] 40.0-44.9, adult; I10 Essential (primary) hypertension; E78.5 Hyperlipidemia, unspecified; Z87.442 Personal history of urinary calculi
CPT/HCPCS: 36415; 71045; 74176; 74246; 80048; 80053; 83605; 83690; 83735; 84484; 84550; 85007; 85025; 85027; 85610; 85652; 85730; 86141; 86431; 86850; 86900; 86901; 87070; 87075; 87205; 93005; 93970; 96365; 96375; 97163; 99291; G0378; J1100; J1885; J2003; J2250; J2405; J2470; J2543; J2704

== ENCOUNTER 2024-06-05 10:27 | Inpatient (IN) | payer MEDICAID ==
[~2024-06-05] VITALS: Ht 188 cm; Wt 134.5 kg
[~2024-06-05 10:27] MED LIST: DICL1GEL59 EX; HYDR25TA5 PO; LISI20TA56 PO; PANT40TA2 PO; PERCOT PO
[2024-06-05] MEDS ORDERED: ASPirin 81 mg TAB ONE ×2 (11:15→11:17)
--- NOTE | 2024-06-05 11:16 | ED.PDOC ---
HPI Comments 64Y M with PMHx HTN and kidney stones presents to ED for chief complaint chest pain. Pt denies SOB, nausea, and dizziness. Pt had perforated ulcer surgery 2wks ago at [facility] and was recovering well, but 3 days ago he developed left, lateral, sharp chest pain. Pain worsens with inhalation. No known allergies. [facility] d/c notes from 05/27/2024 reviewed. Chief Complaint: Chest Pain Time Seen by MD: 10:40 Reviewed Notes: Medications, Allergies Allergies: Coded Allergies: NO KNOWN ALLERGIES (Unverified , 05/20/24) Home Meds Active Scripts Pantoprazole Sodium Sesquihydr (Protonix) 40 Mg Tab, 40 MG PO BID for 30 Days, #60 TAB Prov:HELEN GUZMAN NP 05/27/24 Oxycodone W/ Acetaminophen (Percocet 5/325MG) 1 Tab Tb, 1 TAB PO TID for 5 Days, #15 TAB Prov:HELEN GUZMAN NP 05/27/24 Diclofenac Sodium (Topical) (Voltaren Arthritis Pain) 1 % Gel, 1 % EX BID for 7 Days, #1 GEL Prov:HELEN GUZMAN NP 05/27/24 Hctz (Hydrochlorothiazide) 25 Mg Tab, 25 MG PO DAILY for 30 Days, #30 TAB 3 Refills Prov:HELEN GUZMAN NP 05/27/24 Lisinopril (Lisinopril) 20 Mg Tab, 20 MG PO DAILY for 30 Days, #30 MG 3 Refills Prov:HELEN GUZMAN NP 05/27/24 Information Source: Patient Mode of Arrival: Ambulatory Severity: Moderate Timing: Days Duration: Intermittent Location: Chest (L) Radiation: No Radiation Quality: Sharp Onset: At Rest Cardiac Risk Factors: HTN PE Risk Factors: Recent Surgery History of: None Modifying Factors: Nothing Associated Signs and Symptoms: Other Past Medical History PAST MEDICAL HISTORY: HTN, Kidney Stones Family History Family History: Reviewed,noncontributory to illness Social History Smoker: Non-Smoker Alcohol: Occasionally Drugs: Denies Drug Use Lives In: Home Constitutional: denies: chills, diaphoresis, fatigue, fever, malaise, sweats, weakness, others EENTM: denies: blurred vision, double vision, ear bleeding, ear discharge, ear drainage, ear pain, ear ringing, eye pain, eye redness, hearing loss, mouth pain , mouth swelling, nasal discharge, nose bleeding, nose congestion, nose pain, photophobia, tearing, throat pain, throat swelling, voice changes, others Respiratory: denies: cough, hemoptysis, orthopnea, SOB at rest, shortness of breath, SOB with excertion, stridor, wheezing, others Cardiovascular: reports: chest pain; denies: dizzy spells, diaphoresis, Dyspnea on exertion, edema, irregular heart beat, left arm pain, lightheadedness, palpitations, PND, syncope, others Gastrointestinal: denies: abdomen distended, abdominal pain, blood streaked bowels, constipated, diarrhea, dysphagia, difficulty swallowing, hematemesis, melena, nausea, poor appetite, poor fluid intake, rectal bleeding, rectal pain, vomiting, others Genitourinary: denies: burning, dysuria, flank pain, frequency, hematuria, incontinence, penile discharge, penile sore, pain, testicle pain, testicle swelling, urgency, others Neurological: denies: dizziness, fainting, headache, left sided numbness, left sided weakness, numbness, paresthesia, pre-existing deficit, right sided numbness, right sided weakness, seizure, speech problems, tingling, tremors, weakness, others Musculoskeletal: denies: back pain, gout, joint pain, joint swelling, muscle pain, muscle stiffness, neck pain, others Integumetry: denies: bruises, change in color, change in hair/nails, dryness, laceration, lesions, lumps, rash, wounds, others Allergic/Immunocompromised: denies: Difficulty Healing, Frequent Infections, Hives, Itching, others Endocrine: denies: excessive hunger, excessive sweating, excessive thirst, excessive urination, flushing, intolerance to cold, intolerance to heat, unexplained weight gain, unexplained weight loss, others Psychiatric: denies: anxiety, bipolar disorder, depression, hopeless, panic disorder, schizophrenia, sleepless, suicidal, others All Other Systems: Reviewed and Negative Physical Exam General Appearance: No Apparent Distress, Normal HEENT: Normal ENT Inspection, Pharynx Normal, TMs Normal Neck: Full Range of Motion, Non-Tender, Normal, Normal Inspection Respiratory: Chest Non-Tender, Lungs Clear, No Accessory Muscle Use, No Respiratory Distress, Normal Breath Sounds Cardiovascular: No Edema, No JVD, No Murmur, No Gallop, Normal Peripheral Pulses, Regular Rate/Rhythm Breast Exam: Deferred Gastrointestinal: No Organomegaly, Non Tender, No Pulsatile Mass, Normal Bowel Sounds, Soft Genitalia: Deferred Pelvic: Deferred Rectal: Deferred Extremities: No calf tenderness, Normal capillary refill, Normal inspection, Normal range of motion, Non-tender, No pedal edema Musculoskeletal : Apperance: Normal Neurologic: Alert, instant print operator II-XII nml as Tested, No Motor Deficits, Normal Affect, Normal Mood, No Sensory Deficits Cerebellar Function: Normal Reflexes: Normal Skin: Dry, Normal Color, Warm Lymphatic: No Adenopathy Was a procedure done? Was a procedure done?: No CP Differential Dx Differential Diagnosis: Anxiety / Panic Attack, Electrolyte Disorder X-Ray, Labs, Meds, VS Vital Signs Date Time Temp Pulse Resp B/P (MAP) Pulse Ox O2 Delivery O2 Flow Rate FiO2 06/05/24 14:38 72 18 92/63 (73) 97 06/05/24 13:41 98.4 84 20 94/58 (70) 96 98.4 06/05/24 11:29 80 06/05/24 11:23 87 17 109/66 (80) 95 06/05/24 10:43 99.7 82 18 111/75 (87) 95 06/05/24 10:33 85 Lab Test 06/05/24 11:48 06/05/24 11:01 Range/Units Troponin I High Sensitivity 4 3 L </=54 ng/L White Blood Count 10.6 4.4-10.8 10^3/uL Red Blood Count 4.86 4.5-5.90 10^6/uL Hemoglobin 16.1 13.5-17.5 g/dL Hematocrit 47.2 41.0-53.0 % Mean Corpuscular Volume 97.0 80.0-100.0 fL Mean Corpuscular Hemoglobin 33.1 H 28.0-32.0 pg Mean Corpuscular Hemoglobin Concent 34.1 32.0-36.0 g/dL Red Cell Distribution Width 15.2 H 11.8-14.3 % Platelet Count 349 140-450 10^3/uL Mean Platelet Volume 8.3 6.9-10.8 fL Neutrophils (%) (Auto) 73.8 37.0-80.0 % Lymphocytes (%) (Auto) 11.7 10.0-50.0 % Monocytes (%) (Auto) 10.8 0.0-12.0 % Eosinophils (%) (Auto) 3.0 0.0-7.0 % Basophils (%) (Auto) 0.7 0.0-2.0 % Neutrophils # (Auto) 7.8 1.6-8.6 10 ^3/uL Lymphocytes # (Auto) 1.2 0.4-5.4 10 ^3/uL Monocytes # (Auto) 1.2 0-1.3 10 ^3/uL Eosinophils # (Auto) 0.3 0-0.8 10 ^3/uL Basophils # (Auto) 0.1 0-0.2 10 ^3/uL Nucleated Red Blood Cells 0.1 % D-Dimer, Quantitative 3.91 H 0.0-0.49 mg/L FEU Sodium Level 132 L 136-145 mmol/L Potassium Level 4.3 3.5-5.1 mmol/L Chloride Level 97 L 98-107 mmol/L Carbon Dioxide Level 28 20-31 mmol/L Anion Gap 7 5-15 Blood Urea Nitrogen 24 H 9-23 mg/dL Creatinine 1.33 H 0.700-1.30 mg/dL Glomerular Filtration Rate Calc 60 >90 mL/min BUN/Creatinine Ratio 18.0 10.0-20.0 Serum Glucose 120 H 74-106 mg/dL Calcium Level 9.5 8.7-10.4 mg/dL Current Medications Medications (Trade) Dose Ordered Sig/Binta Route Start Time Stop Time Status Last Admin Aspirin 325 mg ONCE ONCE PO 06/05/24 11:00 06/05/24 11:01 DC 06/05/24 11:22 Sodium Chloride 500 ml @ 500 mls/hr Q1H ONCE IV 06/05/24 14:00 06/05/24 14:59 DC 06/05/24 13:[address] [address] Ph: [phone] DIAGNOSTIC IMAGING Diagnostic Imaging Report : [id number] Signed PATIENT: PREMA CARTWRIGHT ACCT: [id number] UNIT: [id number] : 1960 LOC: ER ROOM / BED: / AGE / SEX: 64 / M ADM STATUS: REG ER SERVICE 1052 ORDERING PHYSICIAN: NEETU MARTIN MD PROCEDURE(s): CXRP - CHEST PORTABLE REASON: cp ORDER NUMBER(s): [id number], ACCESSION NUMBER(s): [id number] XY CHEST PORTABLE, HISTORY: cp COMPARISON: XY CHEST XRAY 1 VIEW on DOS: 05/24/24, XY CHEST XRAY 1 VIEW on DOS: 05/20/24, XY CHEST PORTABLE on DOS: 05/20/24 XY CHEST XRAY 1 VIEW on DOS: 05/24/24, XY CHEST XRAY 1 VIEW on DOS: 05/20/24, XY CHEST PORTABLE on DOS: 05/20/24 TECHNICAL DATA: 1 view of the chest was obtained. FINDINGS: Lines and tubes: None Cardiomediastinal silhouette: normal Pulmonary vasculature: normal Lung expansion: normal Lung airspace: normal Lung interstitium: normal Pleura: normal Pneumothorax: no Bones: Unremarkable Other: no IMPRESSION: No acute intrathoracic abnormality. ATED BY: RENE PARIKH MD DICTATED DATE/TIME: 06/05/241124 SIGNED BY: RENE PARIKH MD SIGNED DATE/TIME: 06/05/241124 CC: Time of 1ST Reevaluation: 11:10 Reevaluation 1ST: Unchanged Time of 2ND Reevaluation: 15:59 Reevaluation 2ND: Improved Patient Education/Counseling: Diagnosis, Treatment Family Education/Counseling: No Family Present Additional Information Tests ordered and results reviewed: CBC, BMP, troponin, D-dimer, CXR Independent historians include: None. Dr. Martin interpreted each of the tests and agrees with the result. Results and treatment discussed with the pt and medical personnel. pt had abdominal surgery weeks ago, and now he has chest pain. his DDI is elevated. although postop imfalmmatin may trigger an increase in DDI, PE is not excluded. his renal function is concerning so CTA is not ordered. pt will need to be admitted for VQ scan Departure 1 Departure Time of Disposition: 16:00 Impression: Primary Impression: Chest pain Qualified Codes: R07.9 - Chest pain, unspecified Additional Impression: Renal failure Qualified Codes: N19 - Unspecified kidney failure Disposition: ADMITTED INPATIENT Admit to: Tele Condition: Stable Critical Care Note Critical Care Time?: Yes (45 min-critical care time only) Critical care comment: due to the real possibility of patient's condition deteriorating, his care requires my highest attention and readiness to intervene. i assessed the patient, ordered the proper tests and treatments, reassessed him for response, formulated a plan, discussed it with medical personnel, and consultants,. total time include more than 50% face to face contact and does not include any procedures Stability Stability form required: No Heart Score Heart Score: Heart Score Response (Comments) Value History Moderate Suspicious 1 EKG Normal 0 Age 45-64 1 Risk Factors 1 or 2 risk factors 1 Troponin Normal limit 0 Total 3 I personally scribed for NEETU MARTIN MD ([facility]) on 06/05/24 at 11:16. Electronically submitted by Rosina Gonsalves ([employer]). I personally scribed for NEETU MARTIN MD ([facility]) on 06/05/24 at 11:17. Electronically submitted by Rosina Gonsalves ([employer]). I personally scribed for NEETU MARTIN MD (JANN) on 06/05/24 at 11:38. Electronically submitted by Rosina Gonsalves ([employer]). I personally scribed for NEETU MARTIN MD ([email or web address]) on 06/05/24 at 11:39. Electronically submitted by Rosina Gonsalves ([employer]). NEETU MARTIN MD Jun 05, 2024 11:16
[2024-06-05] MEDS: ASPirin 81 mg TAB PO ONE (11:22)
--- NOTE | 2024-06-05 11:27 | DVH ---
XY CHEST PORTABLE, HISTORY: cp COMPARISON: XY CHEST XRAY 1 VIEW on DOS: 05/24/24, XY CHEST XRAY 1 VIEW on DOS: 05/20/24, XY CHEST POR TABLE on DOS: 05/20/24 XY CHEST XRAY 1 VIEW on DOS: 05/24/24, XY CHEST XRAY 1 VIEW on DOS: 05/20/24, XY CHEST PORTABLE on DOS : 05/20/24 TECHNICAL DATA: 1 view of the chest was obtained. FINDINGS: Lines and tubes: None Cardiomediastinal silhouette: normal Pulmonary vasculature: normal Lung expansion: normal Lung airspace: normal Lung interstitium: normal Pleura: normal Pneumothorax: no Bones: Unremarkable Other: no IMPRESSION: No acute intrathoracic abnormality.
[2024-06-05 11:33] LABS: Basophils # (auto) 0.1 10 ^3/uL (0-0.2); Basophils % (auto) 0.7 % (0.0-2.0); Eosinophils # (auto) 0.3 10 ^3/uL (0-0.8); Hematocrit 47.2 % (41.0-53.0); Hemoglobin 16.1 g/dL (13.5-17.5); Lymphocytes # (auto) 1.2 10 ^3/uL (0.4-5.4); Lymphocytes % (auto) 11.7 % (10.0-50.0); Mean Corpuscular Hemoglobin 33.1 pg (28.0-32.0); Mean Corpuscular Hgb Conc. 34.1 g/dL (32.0-36.0); Monocytes # (auto) 1.2 10 ^3/uL (0-1.3); Monocytes % (auto) 10.8 % (0.0-12.0); Neutrophils # (auto) 7.8 10 ^3/uL (1.6-8.6); Neutrophils % (auto) 73.8 % (37.0-80.0); Nucleated Red Blood Cells % 0.1 %; Platelet Count (auto) 349 10^3/uL (140-450); Red Blood Cells 4.86 10^6/uL (4.5-5.90); Red Cell Distribution Width 15.2 % (11.8-14.3); White Blood Cell 10.6 10^3/uL (4.4-10.8)
[2024-06-05 11:38] LABS: Chloride 97 mmol/L (98-107); Potassium 4.3 mmol/L (3.5-5.1); Sodium 132 mmol/L (136-145)
[2024-06-05 11:39] LABS: Anion Gap 7 (5-15); Carbon Dioxide 28 mmol/L (20-31)
[2024-06-05 11:40] LABS: Calcium 9.5 mg/dL (8.7-10.4)
[2024-06-05 11:44] LABS: Blood Urea Nitrogen 24 mg/dL (9-23); Glucose 120 mg/dL (74-106)
[2024-06-05] MEDS: SODIUM CHLORIDE 0.9% 500 ML IV ONE (13:59)
[2024-06-05] MEDS: MAALOX PLUS or MAALOX 30 ML PO ONE (17:15)
[2024-06-05] MEDS: SODIUM CHLORIDE 0.9% 1,000 ML IV SCH (17:15)
[2024-06-05] MEDS ORDERED: ONDANSETRON HCL 4 MG/2 ML VIAL IV PRN (17:15)
[2024-06-05] MEDS ORDERED: ZOLPIDEM TARTRATE 5 MG TAB PO PRN (17:15)
[2024-06-05] MEDS ORDERED: LORazepam 0.5 MG TAB PO PRN (17:15)
[2024-06-05] MEDS ORDERED: NITROGLYCERIN 0.4 MG SL TAB SL PRN (17:15)
[2024-06-05] MEDS ORDERED: ACETAMINOPHEN 325 MG TAB PO PRN (17:15)
[2024-06-05] MEDS ORDERED: MORPHINE SULFATE INJ 2 MG/ml SYRG IV PRN (17:15)
--- NOTE | 2024-06-05 17:17 | DVHHP2 ---
History of Present Illness Reason for Visit: chest pain History of Present Illness 64 yo obese patient history HTN history surgery about 2 weeks prior comes in with chest pain described as pleuritic in nature patient was recommended for admission r/o cardiac status Cardiovascular: HTN Past Surgical History: Other (perforated bowels ) Review of Systems Constitutional: No: Fever, Chills, Sweats, Weakness, Malaise, Other Eyes: No: Pain, Vision change, Conjunctivae inflammation, Eyelid inflammation, Other, Redness ENT: No: Ear pain, Ear discharge, Nose pain, Nose discharge, Nose congestion, Mouth pain, Mouth swelling, Throat pain, Throat swelling, Other Respiratory: Shortness of breath; No: Cough, Dry, SOB with excertion, Wheezing, Hemoptysis, Pleuritic Pain, Sputum, Wheezing, Other Cardiovascular: Chest Pain, Palpitations; No: Orthopnea, Paroxysmal Noc. Dyspnea, Edema, Lt Headedness, Other Gastrointestinal: No: Nausea, Vomiting, Abdominal Pain, Diarrhea, Constipation, Melena, Hematochezia, Other Genitourinary: No Dysuria, No Frequency, No Incontinence, No Hematuria, No Retention, No Other Musculoskeletal: No: other, neck pain, shoulder pain, arm pain, back pain, hand pain, leg pain, foot pain Skin: No: Rash, Lesions, Jaundice, Bruising, Other Neurological: No: Weakness, Numbness, Incoordination, Change in speech, Confusion, Seizures, Other Allergies: Coded Allergies: NO KNOWN ALLERGIES (Unverified , 05/20/24) Exam Vital Signs Vital Signs Date Time Temp Pulse Resp B/P (MAP) Pulse Ox O2 Delivery O2 Flow Rate FiO2 06/05/24 14:38 72 18 92/63 (73) 97 06/05/24 13:41 98.4 98.4 General Appearance: Alert, Oriented X3, mild distress HEENT: Atraumatic, PERRLA Respiratory: Clear to auscultation, Normal air movement Cardiovascular: Regular rate, Normal S1, Normal S2 Abdominal: Normal bowel sounds, Soft, No tenderness Extremities: No clubbing, No cyanosis Skin: No rashes, No breakdown Neuro: Normal gait, Normal speech Psych/Mental Status: Mood NL Labs/Xrays Labs Test 06/05/24 11:48 06/05/24 11:01 Range/Units Troponin I High Sensitivity 4 </=54 ng/L White Blood Count 10.6 4.4-10.8 10^3/uL Red Blood Count 4.86 4.5-5.90 10^6/uL Hemoglobin 16.1 13.5-17.5 g/dL Hematocrit 47.2 41.0-53.0 % Mean Corpuscular Volume 97.0 80.0-100.0 fL Mean Corpuscular Hemoglobin 33.1 H 28.0-32.0 pg Mean Corpuscular Hemoglobin Concent 34.1 32.0-36.0 g/dL Red Cell Distribution Width 15.2 H 11.8-14.3 % Platelet Count 349 140-450 10^3/uL Mean Platelet Volume 8.3 6.9-10.8 fL Neutrophils (%) (Auto) 73.8 37.0-80.0 % Lymphocytes (%) (Auto) 11.7 10.0-50.0 % Monocytes (%) (Auto) 10.8 0.0-12.0 % Eosinophils (%) (Auto) 3.0 0.0-7.0 % Basophils (%) (Auto) 0.7 0.0-2.0 % Neutrophils # (Auto) 7.8 1.6-8.6 10 ^3/uL Lymphocytes # (Auto) 1.2 0.4-5.4 10 ^3/uL Monocytes # (Auto) 1.2 0-1.3 10 ^3/uL Eosinophils # (Auto) 0.3 0-0.8 10 ^3/uL Basophils # (Auto) 0.1 0-0.2 10 ^3/uL Nucleated Red Blood Cells 0.1 % D-Dimer, Quantitative 3.91 H 0.0-0.49 mg/L FEU Sodium Level 132 L 136-145 mmol/L Potassium Level 4.3 3.5-5.1 mmol/L Chloride Level 97 L 98-107 mmol/L Carbon Dioxide Level 28 20-31 mmol/L Anion Gap 7 5-15 Blood Urea Nitrogen 24 H 9-23 mg/dL Creatinine 1.33 H 0.700-1.30 mg/dL Glomerular Filtration Rate Calc 60 >90 mL/min BUN/Creatinine Ratio 18.0 10.0-20.0 Serum Glucose 120 H 74-106 mg/dL Calcium Level 9.5 8.7-10.4 mg/dL Assessment/Plan Assessment/Plan Admit Med/Surg Chest Pain r/o ACS trops first set negative monitor trops elevated d-dimer chest pain protocol CTA chest r/o acue PE Lovenox therapeutic doses due to high suspicion s/p history of surgery recently Morbidly obese History HTN c/w home medications History CKD vs dewayne gentle hydration reevaluationkabs Plan discussed with: Patient Problem List: (1) Hypertension (2) Chest pain (3) Renal failure Date of Service: Jun 05, 2024 Billing Provider: MYLES MOORE MD Common Visit Codes: [id number] INP/OBS CARE (HIGH) MYLES MOORE MD Jun 05, 2024 17:16
[2024-06-05] MEDS: IOHEXOL 350 MG/ML 100ML IJ ONE (17:56)
[2024-06-05 18:00] VITALS: PULSE 77; RESP 15; O2SAT 97
[2024-06-05] MEDS: ENOXAPARIN SOD 150 MG/1 ML SYRINGE SC SCH (18:21)
--- NOTE | 2024-06-05 18:29 | DVH ---
CT CT ANGIO CHEST CONTRAST INDICATION: rule out pe EXAM DATE: 06/05/2024 05:37 PM COMPARISON: None RADIATION DOSE: CTDIvol: 28 mGy, DLP: 1005 mGy*cm PROCEDURE: Helical CT angiographic images were obtained of the chest with intravenous contrast. Sagi ttal and coronal reconstructions as well as MIPS are provided. Maximum intensity projections performe d (MIPs) were performed for CTA. ADDITIONAL IMAGES / REFORMATS: None All CT scans at this medical facility are performed using dose modulation techniques as appropriate t o a performed exam including the following: Automated exposure control was utilized; adjustment of th e MA and/or KV according to patient size; and use of iterative reconstruction technique. FINDINGS: Bones: Scattered degenerative changes are noted in the visualized osseous structures. Visualized Abdomen: Normal. Chest Wall: Normal. Soft tissues: Normal. Mediastinum: Normal. Heart: Normal. Vessels: Small filling defect in the right middle lobe subsegmental pulmonary artery branch. Enlarged MPA to 4.1 cm. Lymph Nodes: Normal. Pleura: Normal. Airways: Normal. Lung: Bibasilar subsegmental atelectasis. Other: None IMPRESSION: Small filling defect in the right middle lobe subsegmental pulmonary artery branch could be a small p ulmonary embolus. Enlarged main pulmonary artery could be pulmonary artery hypertension. Critical Result: Pulmonary Emboli Findings discussed with Dr. Sheriff at 06/05/2024 06:23 PM and acknowledged receipt and understanding of the findings.
[2024-06-05] MEDS: METOPROLOL TARTRATE 25 MG TAB PO SCH (22:18)
[2024-06-05] MEDS: PANTOPRAZOLE 40 MG TAB PO SCH (22:18)
[2024-06-05] MEDS: ATORVASTATIN 20 MG TAB PO SCH (22:19)
[2024-06-06] VITALS (8 sets, daily range): BP systolic 105–123; BP diastolic 59–77; PULSE 76–93; RESP 18–20; TEMP 98.3–99.7; O2SAT 90–93
[2024-06-06] MEDS: MORPHINE SULFATE INJ 2 MG/ml SYRG IV PRN (04:23)
[2024-06-06 07:25] LABS: Basophils # (auto) 0 10 ^3/uL (0-0.2); Basophils % (auto) 0.4 % (0.0-2.0); Eosinophils # (auto) 0.4 10 ^3/uL (0-0.8); Eosinophils % (auto) 4.5 % (0.0-7.0); Hemoglobin 14.8 g/dL (13.5-17.5); Lymphocytes % (auto) 12.8 % (10.0-50.0); Mean Corpuscular Hemoglobin 33.6 pg (28.0-32.0); Mean Corpuscular Hgb Conc. 34.5 g/dL (32.0-36.0); Mean Corpuscular Volume 97.5 fL (80.0-100.0); Monocytes % (auto) 11.7 % (0.0-12.0); Neutrophils # (auto) 5.8 10 ^3/uL (1.6-8.6); Neutrophils % (auto) 70.6 % (37.0-80.0); Nucleated Red Blood Cells % 0.1 %; Platelet Count (auto) 296 10^3/uL (140-450); Red Cell Distribution Width 14.7 % (11.8-14.3); White Blood Cell 8.2 10^3/uL (4.4-10.8)
[2024-06-06 07:37] LABS: Chloride 98 mmol/L (98-107); Potassium 4.6 mmol/L (3.5-5.1); Sodium 133 mmol/L (136-145)
[2024-06-06 07:38] LABS: Anion Gap 5 (5-15); Calcium 9.4 mg/dL (8.7-10.4); Carbon Dioxide 30 mmol/L (20-31)
[2024-06-06 07:43] LABS: BUN/Creatinine Ratio 21.2 (10.0-20.0); Blood Urea Nitrogen 22 mg/dL (9-23); Glucose 99 mg/dL (74-106)
[2024-06-06] MEDS ORDERED: LISINOPRIL 5 MG TAB PO SCH (10:00)
[2024-06-06] MEDS: CLOPIDOGREL BISULFATE 75 MG TAB PO SCH (10:35)
[2024-06-06] MEDS: hydroCHLOROthiazide 25 MG TAB PO SCH (10:35)
[2024-06-06] MEDS: DOCUSATE SOD 100 MG CAP PO SCH (10:37)
[2024-06-06] MEDS: LISINOPRIL 20 MG TAB PO SCH (10:37)
[2024-06-06] MEDS: ASPirin 81 mg TAB PO SCH (10:38)
[2024-06-06] MEDS: HYDROcodone-ACET 5/325MG TAB PO PRN (11:55)
--- NOTE | 2024-06-06 15:00 | DVH ---
Bilateral lower extremity venous duplex Clinical History: PE present. rule out source dvt in legs. Comparison: US BILAT LOWER DVT on DOS: 05/26/24 Technique: Duplex Doppler evaluation of the deep venous systems of both lower extremities from the common femora l veins to the popliteal veins including color Doppler and spectral/pulsed waveform analysis was perf ormed. Findings: RIGHT SIDE: The common femoral vein demonstrates appropriate compressibility and waveform variability. There is compressibility/patency of the great saphenous vein at the proximal thigh. The femoral vein demonstrates appropriate compressibility and waveform variability. The deep femoral vein demonstrates appropriate compressibility and waveform variability. The popliteal vein demonstrates appropriate compressibility and waveform variability. There is normal compressibility at the tibioperoneal trunk. LEFT SIDE: The common femoral vein demonstrates appropriate compressibility and waveform variability. There is compressibility/patency of the great saphenous vein at the proximal thigh. The femoral vein demonstrates appropriate compressibility and waveform variability. The deep femoral vein demonstrates appropriate compressibility and waveform variability. The popliteal vein demonstrates appropriate compressibility and waveform variability. There is normal compressibility at the tibioperoneal trunk. Impression: 1. No right or left femoropopliteal venous thrombosis.
--- NOTE | 2024-06-06 16:27 | DVHPN2 ---
Subjective update -06/06- Patient recently had perforated bowel and was admitted few weeks ago. His incisions have healed well and he does not have any abdominal pain, he was tolerating p.o., no nausea vomiting, passing gas/having bowel movements. He presenting with left chest wall pain, does not appear to be cardiac in nature, pain is pleuritic. Reviewed: H&P Changes from previous H/P or p: No Changes General: Per HPI Respiratory: Shortness of breath Objective Vitals Vital Signs Date Time Temp Pulse Resp B/P (MAP) Pulse Ox O2 Delivery O2 Flow Rate FiO2 06/06/24 13:57 78 111/63 06/06/24 13:00 98.3 20 93 98.3 06/06/24 08:00 Room Air* 0 21 Intake/Output Intake and Output 06/06/24 07:00 Intake Total 500 ml Balance 500 ml Intake Oral 0 ml IV Total 500 ml Exam GEN: Healthy appearing, well-developed, NAD. HEENT: NC/AT; MMM. CV: RRR, no m/r/g. LUNGS: CTAB, no w/r/c. ABD: Soft, NT/ND, NBS, no masses or organomegaly. Midline scar from recent surgery, no exudates, healing well EXT: skin Warm, well perfused. no rashes. No clubbing, cyanosis, or edema. NEURO: Ambulating with no limitations. No focal deficits. Medications Current Medications Medications Dose Ordered Sig/Binta Route Start Time Stop Time Status Last Admin Dose Admin Hydrochlorothiazide 25 mg DAILY PO 06/06/24 10:00 06/06/24 10:35 25 MG Lisinopril 20 mg DAILY PO 06/06/24 10:00 06/06/24 10:37 20 MG Pantoprazole Sodium 40 mg BID PO 06/05/24 22:00 06/06/24 10:34 40 MG Atorvastatin Calcium 40 mg HS PO 06/05/24 22:00 06/05/24 22:19 40 MG Metoprolol Tartrate 25 mg Q12HR PO 06/05/24 22:00 06/06/24 10:36 25 MG Acetaminophen 650 mg Q6HP PRN PO 06/05/24 17:15 Zolpidem Tartrate 5 mg QHSP PRN PO 06/05/24 17:15 Lorazepam 0.5 mg Q6HP PRN PO 06/05/24 17:15 Docusate Sodium 100 mg DAILY PO 06/06/24 10:00 06/06/24 10:37 100 MG Ondansetron HCl 4 mg Q4HP PRN IV 06/05/24 17:15 Lisinopril 10 mg DAILY PO 06/06/24 10:00 UNV Nitroglycerin 0.4 mg Q5MINP PRN SL 06/05/24 17:15 Morphine Sulfate 2 mg Q30M PRN IV 06/05/24 17:15 Morphine Sulfate 2 mg Q4HPRN PRN IV 06/06/24 04:15 06/06/24 04:23 2 MG Acetaminophen/ Hydrocodone Bitart 1 tab Q4HPRN PRN PO 06/06/24 04:15 06/06/24 11:55 1 TAB Enoxaparin Sodium 120 mg Q12HR SC 06/07/24 10:00 Laboratory Results Laboratory Tests 06/06/24 07:11 Chemistry Test 06/06/24 07:11 Calcium Level 9.4 mg/dL (8.7-10.4) Microbiology Microbiology Date/Time Source Procedure Growth Status 06/06/24 04:10 Nose MRSA Screen - Final Complete Labs and/or images reviewed: Labs reviewed by me, Image(s) reviewed by me Assessment/Plan Assessment/Plan update -06/06- Patient recently had perforated bowel and was admitted few weeks ago. His incisions have healed well and he does not have any abdominal pain, he was tolerating p.o., no nausea vomiting, passing gas/having bowel movements. He presenting with left chest wall pain, does not appear to be cardiac in nature, pain is pleuritic. #Chest pain #PE #Recent hospitalization for abdominal Surgery - CTA is done after D-dimer is high, CTA shows small PE and pulmonary hypertension. -troponins negative x3 -Full-dose Lovenox -Ultrasound lower extremity for DVT examination is ordered GERD -PPI continued Hypertension -home MDM transit is okay to start KYLEE -creatinine 1.3 down trending to 1.04 (resolving) Diet cardiac DVT prophylaxis on full-dose Lovenox GI prophylaxis patient tolerating diet Maintain med tele Plan discussed with: Patient My Orders Orders - JOHN CONRAD MD Procedure Category Date Status Time Bilat Lower Dvt US 06/06/24 Resulted 14:13 Date of Service: Jun 06, 2024 Billing Provider: JOHN CONRAD MD Common Visit Codes: [id number] INP/OBS CARE(HIGH) JOHN CONRAD MD Jun 06, 2024 16:27
[2024-06-07] VITALS (7 sets, daily range): BP systolic 94–133; BP diastolic 59–74; PULSE 82–94; RESP 16–20; TEMP 98–98.7; O2SAT 88–94
[2024-06-07 06:22] LABS: Alanine Aminotransferase 17 U/L (7-40); Alkaline Phosphatase 88 U/L (46-116); Anion Gap 6 (5-15); BUN/Creatinine Ratio 20.9 (10.0-20.0); Blood Urea Nitrogen 18 mg/dL (9-23); Calcium 9.4 mg/dL (8.7-10.4); Carbon Dioxide 30 mmol/L (20-31); Chloride 98 mmol/L (98-107); Glucose 111 mg/dL (74-106); Potassium 4.3 mmol/L (3.5-5.1); Sodium 134 mmol/L (136-145)
[2024-06-07 06:23] LABS: Albumin 3.3 g/dL (3.2-4.8); Aspartate Aminotransferase 14 U/L (13-40); Bilirubin, Total 0.7 mg/dL (0.2-1.0); Total Protein 6.2 g/dL (5.7-8.2)
[2024-06-07 06:29] LABS: Basophils # (auto) 0.1 10 ^3/uL (0-0.2); Basophils % (auto) 0.8 % (0.0-2.0); Eosinophils # (auto) 0.3 10 ^3/uL (0-0.8); Eosinophils % (auto) 4.1 % (0.0-7.0); Hematocrit 43.9 % (41.0-53.0); Lymphocytes # (auto) 1.1 10 ^3/uL (0.4-5.4); Lymphocytes % (auto) 13.3 % (10.0-50.0); Mean Corpuscular Hemoglobin 33.2 pg (28.0-32.0); Mean Corpuscular Hgb Conc. 34.2 g/dL (32.0-36.0); Mean Corpuscular Volume 97.2 fL (80.0-100.0); Neutrophils # (auto) 5.6 10 ^3/uL (1.6-8.6); Neutrophils % (auto) 69.8 % (37.0-80.0); Platelet Count (auto) 304 10^3/uL (140-450); Red Blood Cells 4.51 10^6/uL (4.5-5.90); Red Cell Distribution Width 14.9 % (11.8-14.3); White Blood Cell 8.1 10^3/uL (4.4-10.8)
[2024-06-07 07:56] LABS: INR 1.19 (0.9-1.15); Partial Thromboplastin Time 31.5 SEC (24.5-34.5); Prothrombin Time 12.5 sec (9.3-11.8)
[2024-06-07] MEDS: ENOXAPARIN SOD 120 MG/0.8 ML SYRINGE SC SCH (09:44)
[2024-06-07] MEDS ORDERED: BACL10TA PO (10:01)
[2024-06-07] MEDS ORDERED: APIX5TAB PO (10:01)
--- NOTE | 2024-06-07 10:07 | DVHDS2 ---
Discharge Summary Date of Admission Jun 05, 2024 at 17:02 Date of Discharge: Jun 07, 2024 Labs/Diagnostic Data: Laboratory Results Test 06/07/24 05:19 06/05/24 18:02 06/05/24 11:01 White Blood Count 8.1 10^3/uL (4.4-10.8) Red Blood Count 4.51 10^6/uL (4.5-5.90) Hemoglobin 15.0 g/dL (13.5-17.5) Hematocrit 43.9 % (41.0-53.0) Mean Corpuscular Volume 97.2 fL (80.0-100.0) Mean Corpuscular Hemoglobin 33.2 pg (28.0-32.0) Mean Corpuscular Hemoglobin Concent 34.2 g/dL (32.0-36.0) Red Cell Distribution Width 14.9 % (11.8-14.3) Platelet Count 304 10^3/uL (140-450) Mean Platelet Volume 7.9 fL (6.9-10.8) Neutrophils (%) (Auto) 69.8 % (37.0-80.0) Lymphocytes (%) (Auto) 13.3 % (10.0-50.0) Monocytes (%) (Auto) 12.0 % (0.0-12.0) Eosinophils (%) (Auto) 4.1 % (0.0-7.0) Basophils (%) (Auto) 0.8 % (0.0-2.0) Neutrophils # (Auto) 5.6 10 ^3/uL (1.6-8.6) Lymphocytes # (Auto) 1.1 10 ^3/uL (0.4-5.4) Monocytes # (Auto) 1.0 10 ^3/uL (0-1.3) Eosinophils # (Auto) 0.3 10 ^3/uL (0-0.8) Basophils # (Auto) 0.1 10 ^3/uL (0-0.2) Nucleated Red Blood Cells 0.0 % Prothrombin Time 12.5 sec (9.3-11.8) Prothrombin Time INR 1.19 (0.9-1.15) Activated Partial Thromboplast Time 31.5 SEC (24.5-34.5) Sodium Level 134 mmol/L (136-145) Potassium Level 4.3 mmol/L (3.5-5.1) Chloride Level 98 mmol/L (98-107) Carbon Dioxide Level 30 mmol/L (20-31) Anion Gap 6 (5-15) Blood Urea Nitrogen 18 mg/dL (9-23) Creatinine 0.86 mg/dL (0.700-1.30) Glomerular Filtration Rate Calc 97 mL/min (>90) BUN/Creatinine Ratio 20.9 (10.0-20.0) Serum Glucose 111 mg/dL (74-106) Calcium Level 9.4 mg/dL (8.7-10.4) Total Bilirubin 0.7 mg/dL (0.2-1.0) Aspartate Amino Transferase (AST) 14 U/L (13-40) Alanine Aminotransferase (ALT) 17 U/L (7-40) Alkaline Phosphatase 88 U/L (46-116) Total Protein 6.2 g/dL (5.7-8.2) Albumin 3.3 g/dL (3.2-4.8) Troponin I High Sensitivity 3 ng/L (</=54) D-Dimer, Quantitative 3.91 mg/L FEU (0.0-0.49) Other Laboratory Tests 06/07/24 05:19 Brief Hx & Hospital Course: 64 yo M wiht PMHx of HTN, recent admission for perforated gastric ulcer in ED p/w CC of chest pain described as pleuritic in nature in left chest wall. the pain started when he was at rest sitting on his recliner chair. he has been sedentary since d/c from last admission. he does not have SOB, or BROWN. no fevers, cough. on presentation VS stable, no hypoxia. chest pain is unconcerning , appears non- cardiac. there is no rales on exam, no murmur, no Pedal edema, and we find some TTP on left chest wall area where pain is desbribed. CXR w/o concern. CTA with r ight middle lobe subsegmental small PE present and evidence for PH. started on lovenox in ED. Tn neg x 3. US LE dvt rule out done with no evidence for leg DVTs. KYLEE present with Cr 1.3 which trended down with IVFs. patient VS stable, likely provoked PE due to imobility from surgery. diagnosis: Pulmonary embolus; musculoskeletal pain possible; Acei cough likely; chest pain, ACS ruled out; postsurgical; pulmonary hypertension; KYLEE Discharge plan: - [id number] mg every night for 7 days - Eliquis 10 mg twice daily for 7 days then 5 mg twice daily for 3 months - Stopped taking Lisinopril - take other home medications not mentioned above. Condition at Discharge: Fair Final Diagnosis/Problems List diagnosis: Pulmonary embolus; musculoskeletal pain possible; Matty cough; chest pain, ACS ruled out; postsurgical; pulmonary hypertension Discharge Disposition: Home Discharge Instruct/Medications Diet: Cardiac 2g Na,low cholest Activity: No Restrictions, As Tolerated Follow Up/Referral: PCP Medications: as below Discharge Statement: "Patient was advised to return to the ER or call 911 if any headaches, dizziness, shortness of breath, chest pain, abdominal pain, bleeding, fevers, or worsening of medical condition. Patient was counseled about treatment plan, medications, possible side effects, patientverbalized understanding. All questions were answered to the best of my ability. This discharge took greater then 30 minutes in planning, reviewing documentation, counseling the patient, and discussing with other team members." ASSESSMENT ASSESSMENT Assessment diagnosis: Pulmonary embolus; musculoskeletal pain possible; Matty cough; chest pain, ACS ruled out; postsurgical; pulmonary hypertension Date of Service: Jun 07, 2024 Billing Provider: JOHN CONRAD MD Common Visit Codes: [id number]/[id number] DISCH DAY >30min JOHN CONRAD MD Jun 07, 2024 10:07
--- NOTE | 2024-06-07 14:18 | ECG ---
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
== END 2024-06-07 18:40 | disposition home or self-care (01) | DRG 134 ==
LOC: ER 10:27 → OVERFLOW 17:02 → TELE 22:16 → TELE-WESTW 22:17
PROVIDERS: ADMIT Hospitalist; ATTEND Student in an Organized Health Care Education/Training Program
DX: I26.99 Other pulmonary embolism without acute cor pulmonale (principal); N17.0 Acute kidney failure with tubular necrosis; I27.20 Pulmonary hypertension, unspecified; K21.9 Gastro-esophageal reflux disease without esophagitis; E66.01 Morbid (severe) obesity due to excess calories; I12.9 Hypertensive chronic kidney disease with stage 1 through stage 4 chronic kidney disease, or unspecified chronic kidney disease; N18.9 Chronic kidney disease, unspecified; Z79.899 Other long term (current) drug therapy; Z68.34 Body mass index [BMI] 34.0-34.9, adult
CPT/HCPCS: 36415; 71045; 71275; 80048; 80053; 84484; 85025; 85379; 85610; 85730; 87081; 93005; 93970; 99291; G0378